=== PATIENT | male | born 1945 | race Caucasian/White ===

== ENCOUNTER → 2018-03-21 | Emergency (ER) | payer MEDICARE, BC, OTHER | END | disposition left against medical advice (07) | LOC: EDBD 15:41 → ER 15:41 | DX: R07.81 Pleurodynia (principal); Z53.21 Procedure and treatment not carried out due to patient leaving prior to being seen by health care provider ==

== ENCOUNTER → 2020-07-22 | Outpatient (CLI) | payer MEDICARE, BC, OTHER | END | disposition home or self-care (01) | LOC: XY 16:14 | DX: M54.2 Cervicalgia (principal); Z86.73 Personal history of transient ischemic attack (TIA), and cerebral infarction without residual deficits | CPT/HCPCS: 93886 ==

== ENCOUNTER → 2020-12-15 | Outpatient (CLI) | payer MEDICARE, BC, OTHER | END | disposition home or self-care (01) | LOC: XYW 09:49 | DX: M51.37 Other intervertebral disc degeneration, lumbosacral region (principal); M47.817 Spondylosis without myelopathy or radiculopathy, lumbosacral region; M48.07 Spinal stenosis, lumbosacral region; M51.26 Other intervertebral disc displacement, lumbar region; M25.78 Osteophyte, vertebrae; M79.672 Pain in left foot | CPT/HCPCS: 72148 ==

== ENCOUNTER 2022-12-05 21:43 | Emergency (ER) | payer MEDICARE, OTHER ==
[~2022-12-05] VITALS: Ht 172.7 cm; Wt 73.0 kg
[2022-12-05 23:17] LABS: Urine Bacteria FEW /hpf (None Seen); Urine Blood 1+ /uL (Negative); Urine Specific Gravity 1.006 (1.001-1.035); Urine WBC 1 /hpf (0 - 3)
[2022-12-05 23:35] LABS: Basophils # (auto) 0 10 ^3/uL (0-0.2); Basophils % (auto) 0.3 % (0.0-2.0); Eosinophils # (auto) 0 10 ^3/uL (0-0.8); Eosinophils % (auto) 0.5 % (0.0-7.0); Hemoglobin 10.7 g/dL (13.5-17.5); Lymphocytes # (auto) 0.5 10 ^3/uL (0.4-5.4); Lymphocytes % (auto) 4.6 % (10.0-50.0); Mean Corpuscular Hemoglobin 29.8 pg (28.0-32.0); Mean Corpuscular Hgb Conc. 34.6 g/dL (32.0-36.0); Mean Corpuscular Volume 86.2 fL (80.0-100.0); Monocytes # (auto) 0.6 10 ^3/uL (0-1.3); Monocytes % (auto) 5.9 % (0.0-12.0); Neutrophils # (auto) 9.7 10 ^3/uL (1.6-8.6); Neutrophils % (auto) 88.7 % (37.0-80.0); Red Cell Distribution Width 14.1 % (11.8-14.3); White Blood Cell 10.9 10^3/uL (4.4-10.8)
[2022-12-05 23:43] LABS: Albumin 2.6 g/dL (3.4-5.0); BUN/Creatinine Ratio 14.5; Potassium 3.6 mmol/L (3.5-5.1)
[2022-12-05 23:52] LABS: Bilirubin, Total 2.2 mg/dL (0.2-1.0); Total Protein 6.5 g/dL (6.4-8.2)
[2022-12-06 03:15] VITALS: BP 128/71
== END 2022-12-06 03:15 | disposition home or self-care (01) ==
LOC: ER 21:48
DX: N17.9 Acute kidney failure, unspecified (principal); N40.1 Benign prostatic hyperplasia with lower urinary tract symptoms; R33.8 Other retention of urine; Z88.5 Allergy status to narcotic agent; Z88.8 Allergy status to other drugs, medicaments and biological substances
CPT/HCPCS: 36415; 51702; 74176; 80053; 81001; 83690; 85025

== ENCOUNTER 2025-02-22 20:40 | Inpatient (IN) | payer OTHER, MEDICARE, BC ==
[~2025-02-22] VITALS: Ht 172.7 cm; Wt 69.0 kg
--- NOTE | 2025-02-22 21:12 | ED.PDOC ---
Musculoskeletal HPI Comments 79 y/o M, presents to the ED for CC of lower extremity. Patient states, that he has been experiencing right foot swelling with associated redness onset, today (02/22/25). Patient reports, that he had company over yesterday (02/21/25) and was told to have an infection which prompted him to follow up with ED d/t symptoms worsening this morning (02/22/25). Patient states he was able to express fluid out of the wounds site. Patient denies fall, trauma, laceration. No other symptoms or modifying factors present at this time. Patient was hypertensive on arrival. Chief Complaint: Lower Extremity Time Seen by MD: 21:05 Reviewed Notes: Nurses Notes, Medications, Allergies Allergies: Coded Allergies: Atorvastatin (Verified Allergy, Unknown, 12/05/22) Oxycodone (Verified Allergy, Unknown, 12/05/22) Information Source: Patient Mode of Arrival: Ambulatory Location: Right Extremity Location: Foot Timing: Days Prehospital treatment: None Severity: Moderate Bear Weight: Limited Pain: Moderate Mechanism: Spontaneous Circumstances: Spontaneous Onset of Symptoms: Spontaneous Symptoms: Swelling, Pain, Erythema DVT Risk Factors: NONE Last Tetanus: Unknown Associated signs and symptoms: Foot pain Past Medical History PAST MEDICAL HISTORY: HTN Surgical History: Denies all surgeries Family History Family History: Unknown Social History Smoker: Non-Smoker Alcohol: Denies ETOH Use Drugs: Denies Drug Use Lives In: Home Constitutional: denies: chills, diaphoresis, fatigue, fever, malaise, sweats, weakness, others EENTM: denies: blurred vision, double vision, ear bleeding, ear discharge, ear drainage, ear pain, ear ringing, eye pain, eye redness, hearing loss, mouth pain, mouth swelling, nasal discharge, nose bleeding, nose congestion, nose pain, photophobia, tearing, throat pain, throat swelling, voice changes, others Respiratory: denies: cough, hemoptysis, orthopnea, SOB at rest, shortness of breath, SOB with excertion, stridor, wheezing, others Cardiovascular: denies: chest pain, dizzy spells, diaphoresis, Dyspnea on exertion, edema, irregular heart beat, left arm pain, lightheadedness, palpitations, PND, syncope, others Gastrointestinal: denies: abdomen distended, abdominal pain, blood streaked bowels, constipated, diarrhea, dysphagia, difficulty swallowing, hematemesis, melena, nausea, poor appetite, poor fluid intake, rectal bleeding, rectal pain, vomiting, others Genitourinary: denies: burning, dysuria, flank pain, frequency, hematuria, incontinence, penile discharge, penile sore, pain, testicle pain, testicle swelling, urgency, others Neurological: denies: dizziness, fainting, headache, left sided numbness, left sided weakness, numbness, paresthesia, pre-existing deficit, right sided numbness, right sided weakness, seizure, speech problems, tingling, tremors, weakness, others Musculoskeletal: reports: others (right foot pain); denies: back pain, gout, joint pain, joint swelling, muscle pain, muscle stiffness, neck pain Integumetry: denies: bruises, change in color, change in hair/nails, dryness, laceration, lesions, lumps, rash, wounds, others Allergic/Immunocompromised: denies: Difficulty Healing, Frequent Infections, Hives, Itching, others Hematologic/Lymphatic: denies: anemia, blood clots, easy bleeding, easy bruising, swollen glands, others Endocrine: denies: excessive hunger, excessive sweating, excessive thirst, excessive urination, flushing, intolerance to cold, intolerance to heat, unexplained weight gain, unexplained weight loss, others Psychiatric: denies: anxiety, bipolar disorder, depression, hopeless, panic disorder, schizophrenia, sleepless, suicidal, others All Other Systems: Reviewed and Negative Physical Exam General Appearance: Moderate Distress ([id number] distress due to concerns related to his right foot issues. Patient appears to be in poor overall health.), Normal HEENT: Normal ENT Inspection, Pharynx Normal, TMs Normal Neck: Full Range of Motion, Non-Tender, Normal, Normal Inspection Respiratory: Chest Non-Tender, Lungs Clear, No Accessory Muscle Use, No Respiratory Distress, Normal Breath Sounds Cardiovascular: No Edema, No JVD, No Murmur, No Gallop, Normal Peripheral Pulses, Regular Rate/Rhythm Breast Exam: Deferred Gastrointestinal: No Organomegaly, Non Tender, No Pulsatile Mass, Normal Bowel Sounds, Soft Genitalia: Deferred Pelvic: Deferred Rectal: Deferred Extremities: Other (Patient has a weeping forefoot pedal wound on the right foot. Foot is erythematous extending up into the ankle and distal lower leg. No lymphangitis noted. Localized edema.) Neurologic: Alert, No Motor Deficits, Normal Affect, Normal Mood, No Sensory Deficits Cerebellar Function: NOT DONE Reflexes: NOT DONE Skin: Dry, Normal Color, Warm Lymphatic: No Adenopathy Was a procedure done? Was a procedure done?: No Differential Diagnosis EXT Differential Diagnosis: Cellulitis, Bursitis, Other (Sepsis, electrolyte abnormality, osteomyelitis) X-Ray, Labs, Meds, VS Vital Signs Date Time Temp Pulse Resp B/P (MAP) Pulse Ox O2 Delivery O2 Flow Rate FiO2 02/22/25 21:00 98.2 79 16 171/71 (104) 97 98.2 Lab Test 02/22/25 21:17 Range/Units White Blood Count 4.4 4.4-10.8 10^3/uL Red Blood Count 4.31 L 4.5-5.90 10^6/uL Hemoglobin 12.3 L 13.5-17.5 g/dL Hematocrit 36.2 L 41.0-53.0 % Mean Corpuscular Volume 83.9 80.0-100.0 fL Mean Corpuscular Hemoglobin 28.6 28.0-32.0 pg Mean Corpuscular Hemoglobin Concent 34.1 32.0-36.0 g/dL Red Cell Distribution Width 14.4 H 11.8-14.3 % Platelet Count 193 140-450 10^3/uL Mean Platelet Volume 7.8 6.9-10.8 fL Neutrophils (%) (Auto) 65.3 37.0-80.0 % Lymphocytes (%) (Auto) 21.9 10.0-50.0 % Monocytes (%) (Auto) 8.8 0.0-12.0 % Eosinophils (%) (Auto) 2.7 0.0-7.0 % Basophils (%) (Auto) 1.3 0.0-2.0 % Neutrophils # (Auto) 2.9 1.6-8.6 10 ^3/uL Lymphocytes # (Auto) 1.0 0.4-5.4 10 ^3/uL Monocytes # (Auto) 0.4 0-1.3 10 ^3/uL Eosinophils # (Auto) 0.1 0-0.8 10 ^3/uL Basophils # (Auto) 0.1 0-0.2 10 ^3/uL Nucleated Red Blood Cells 0.0 % Sodium Level 143 136-145 mmol/L Potassium Level 3.7 3.5-5.1 mmol/L Chloride Level 105 98-107 mmol/L Carbon Dioxide Level 30 20-31 mmol/L Anion Gap 8 5-15 Blood Urea Nitrogen 20 9-23 mg/dL Creatinine 1.32 H 0.700-1.30 mg/dL Glomerular Filtration Rate Calc 54 >90 mL/min BUN/Creatinine Ratio 15.2 10.0-20.0 Serum Glucose 76 74-106 mg/dL Lactic Acid Level 1.1 0.4-2.0 mmol/L Calcium Level 10.2 8.7-10.4 mg/dL Total Bilirubin 0.6 0.2-1.0 mg/dL Aspartate Amino Transferase (AST) 24 13-40 U/L Alanine Aminotransferase (ALT) 18 7-40 U/L Alkaline Phosphatase 67 46-116 U/L Troponin I High Sensitivity 12 </=54 ng/L B-Type Natriuretic Peptide 91.41 0-100 pg/mL Total Protein 6.6 5.7-8.2 g/dL Albumin 4.4 3.2-4.8 g/dL X-Ray, Labs, Meds, VS Comment All studies performed the ED were evaluated by me personally. Serum studies were unremarkable for any septic concerns. CT of the foot revealed possible osteomyelitis as well as edema of the subcutaneous tissue which is worse over the dorsum of the foot. Patient will be admitted for IV antibiotics to address his probable osteomyelitis concern. Patient should receive a podiatry consultation. Time of 1ST Reevaluation: 23:51 Reevaluation 1ST: Improved Consultation: PCP Patient Education/Counseling: Diagnosis, Treatment Family Education/Counseling: Diagnosis, Treatment, No Family Present Sepsis Sepsis Reasesment Focused Exam Orders: Laboratory Tests 02/22/25 21:17: Lactic Acid Level 1.1 Departure 1 Departure Time of Disposition: 23:51 Impression: Primary Impression: Osteomyelitis of right foot Additional Impression: Hypertension Disposition: 09 ADMITTED INPATIENT Condition: Stable Discharged With: Self Critical Care Note Critical Care Time?: No Stability Stability form required: No Heart Score Heart Score: Heart Score Response (Comments) Value History N/A 0 EKG N/A 0 Age N/A 0 Risk Factors N/A 0 Troponin N/A 0 Total 0 I personally scribed for STONEY ZARAGOZA PAC ([email or web address]) on 02/22/25 at 21:11. Elect ronically submitted by Camila Lucas ([email or web address]). STONEY ZARAGOZA PAC February 22, 2025 21:11
[2025-02-22 21:31] LABS: Basophils # (auto) 0.1 10 ^3/uL (0-0.2); Basophils % (auto) 1.3 % (0.0-2.0); Eosinophils # (auto) 0.1 10 ^3/uL (0-0.8); Eosinophils % (auto) 2.7 % (0.0-7.0); Hematocrit 36.2 % (41.0-53.0); Hemoglobin 12.3 g/dL (13.5-17.5); Lymphocytes % (auto) 21.9 % (10.0-50.0); Mean Corpuscular Hemoglobin 28.6 pg (28.0-32.0); Mean Corpuscular Hgb Conc. 34.1 g/dL (32.0-36.0); Mean Corpuscular Volume 83.9 fL (80.0-100.0); Monocytes # (auto) 0.4 10 ^3/uL (0-1.3); Monocytes % (auto) 8.8 % (0.0-12.0); Neutrophils # (auto) 2.9 10 ^3/uL (1.6-8.6); Neutrophils % (auto) 65.3 % (37.0-80.0); Platelet Count (auto) 193 10^3/uL (140-450); Red Blood Cells 4.31 10^6/uL (4.5-5.90); Red Cell Distribution Width 14.4 % (11.8-14.3); White Blood Cell 4.4 10^3/uL (4.4-10.8)
[2025-02-22 21:53] LABS: Alanine Aminotransferase 18 U/L (7-40); Albumin 4.4 g/dL (3.2-4.8); Alkaline Phosphatase 67 U/L (46-116); Anion Gap 8 (5-15); Aspartate Aminotransferase 24 U/L (13-40); BUN/Creatinine Ratio 15.2 (10.0-20.0); Bilirubin, Total 0.6 mg/dL (0.2-1.0); Blood Urea Nitrogen 20 mg/dL (9-23); Calcium 10.2 mg/dL (8.7-10.4); Carbon Dioxide 30 mmol/L (20-31); Chloride 105 mmol/L (98-107); Glucose 76 mg/dL (74-106); Potassium 3.7 mmol/L (3.5-5.1); Sodium 143 mmol/L (136-145); Total Protein 6.6 g/dL (5.7-8.2)
--- NOTE | 2025-02-22 22:22 | DVH ---
INDICATION: Rule out osteomyelitis of forefoot COMPARISON: None TECHNIQUE: CT of the right was performed without contrast. Volume transverse images were obtained and reconstructed in multiple planes using bone and soft tissue algorithms. CONTRAST: None Radiation Dose Information: CT Dose: CTDI volume is 7.75 mGy. Dose-length product is 204.15 mGy*cm FINDINGS: The alignment is normal. The joint spaces are normal. There is no fracture, dislocation, or focal osseous lesions. Subcutaneous edema is noted over the right foot and ankle worse over the dorsum of the foot. IMPRESSION: 1. Edema in the subcutaneous tissues worse over the dorsum of the foot. 2. No bony erosions however possibility of osteomyelitis can not be excluded recommend MRI for furthe r evaluation. 3. All CT scans at this medical facility are performed using dose modulation techniques as appropriat e to a performed exam including the following: Automated exposure control was utilized; adjustment of the MA and/or KV according to patient size; and use of iterative reconstruction technique. HS:Y
[2025-02-22] MEDS: PIPERACILLIN-TAZOB 3.375GM 100 ML IV ONE (23:45)
[2025-02-22] MEDS ORDERED: VANCOMYCIN PER PHARMACY 0 MG IV SCH (23:45)
[2025-02-23] VITALS (7 sets, daily range): BP systolic 130–146; BP diastolic 60–82; PULSE 47–63; RESP 12–18; TEMP 97.3–97.5; O2SAT 95–100
[2025-02-23] MEDS ORDERED: MORPHINE SULFATE INJ 2 MG/ml SYRG IV PRN (01:45)
[2025-02-23] MEDS ORDERED: NITROGLYCERIN 0.4 MG SL TAB SL PRN (01:45)
[2025-02-23] MEDS ORDERED: DOCUSATE SOD 100 MG CAP PO PRN (01:45)
[2025-02-23] MEDS ORDERED: ONDANSETRON HCL 4 MG/2 ML VIAL IV PRN (01:45)
--- NOTE | 2025-02-23 01:57 | DVHHP2 ---
History of Present Illness Reason for Visit: Osteomyelitis of right foot History of Present Illness The patient is a 79-year-old male with past medical history of hypertension who presented to [facility] ED with complaint of right lower extremity redness and swelling. Patient reports he has been experiencing increased redness of the right foot, painful sensation, bleeding, getting worse that prompted this visit. Patient was seen and evaluated in the ED, laboratory data shows WBC 4.4, platelets 193, sodium 143, potassium 3.7, BUN 20, creatinine 1.32, glucose 76, BNP 91.41, troponin 12, blood pressure 171/71, pulse 79, temperature 98.2 F, O2 saturation 97% on room air. Right foot CT revealing edema in the subcutaneous tissues worse over the dorsum of the foot, no bony erosions, however possibility of osteomyelitis can not be excluded. Patient was started on IV antibiotic regimen vancomycin, given hydralazine 10 mg IV x1, please see medication orders section in the computer. On my assessment, patient denied chest pain, no headache, no dizziness, no diaphoresis, no shortness of breath, no nausea, no vomiting, no fever, no chills. Patient was admitted for further evaluation and medical management. Past Medical History HTN Past Surgical History Denies all surgeries Family History Reviewed, noncontributory to the management of this case. Past Social History The patient lives at home, denies smoking, alcohol or illicit drugs abuse. Review of Systems Constitutional: No: Fever, Chills, Sweats, Weakness, Malaise, Other Eyes: No: Pain, Vision change, Conjunctivae inflammation, Eyelid inflammation, Other, Redness ENT: No: Ear pain, Ear discharge, Nose pain, Nose discharge, Nose congestion, Mouth pain, Mouth swelling, Throat pain, Throat swelling, Other Respiratory: No: Cough, Dry, Shortness of breath, SOB with excertion, Wheezing, Hemoptysis, Pleuritic Pain, Sputum, Wheezing, Other Cardiovascular: No: Chest Pain, Palpitations, Orthopnea, Paroxysmal Noc. Dyspnea, Edema, Lt Headedness, Other Gastrointestinal: No: Nausea, Vomiting, Abdominal Pain, Diarrhea, Constipation, Melena, Hematochezia, Other Genitourinary: No Dysuria, No Frequency, No Incontinence, No Hematuria, No Retention, No Other Musculoskeletal: foot pain (Right); No: other, neck pain, shoulder pain, arm pain, back pain, hand pain, leg pain Skin: No: Rash, Lesions, Jaundice, Bruising, Other Neurological: No: Weakness, Numbness, Incoordination, Change in speech, Confusion, Seizures, Other Allergies: Coded Allergies: Atorvastatin (Verified Allergy, Unknown, 12/05/22) Oxycodone (Verified Allergy, Unknown, 12/05/22) Medications Current Medications Medications Dose Ordered Sig/Syed Route Start Time Stop Time Status Last Admin Dose Admin Vancomycin HCl 0 ml @ 0 mls/hr UD IV 02/22/25 23:45 UNV Exam Vital Signs Vital Signs Date Time Temp Pulse Resp B/P (MAP) Pulse Ox O2 Delivery O2 Flow Rate FiO2 02/22/25 21:00 98.2 79 16 171/71 (104) 97 98.2 General Appearance: Alert, Oriented X3, Cooperative, No acute distress HEENT: Atraumatic, PERRLA, EOMI, Mucous membr. moist/pink Respiratory: Clear to auscultation, Normal air movement Cardiovascular: Regular rate, Normal S1, Normal S2, No murmurs Abdominal: Normal bowel sounds, Soft, No tenderness, No hepatospenomegaly, No masses Extremities: No clubbing, No cyanosis, No edema, Normal pulses, Other (Right foot swelling/redness) Skin: No rashes, No significant lesion Neuro: Normal speech, Normal tone, Sensation intact, Cranial nerves 3-12 NL, R eflexes 2+, Other (Generalized weakness) Psych/Mental Status: Mental status NL, Mood NL Labs/Xrays Labs Test 02/22/25 21:17 Range/Units White Blood Count 4.4 4.4-10.8 10^3/uL Red Blood Count 4.31 L 4.5-5.90 10^6/uL Hemoglobin 12.3 L 13.5-17.5 g/dL Hematocrit 36.2 L 41.0-53.0 % Mean Corpuscular Volume 83.9 80.0-100.0 fL Mean Corpuscular Hemoglobin 28.6 28.0-32.0 pg Mean Corpuscular Hemoglobin Concent 34.1 32.0-36.0 g/dL Red Cell Distribution Width 14.4 H 11.8-14.3 % Platelet Count 193 140-450 10^3/uL Mean Platelet Volume 7.8 6.9-10.8 fL Neutrophils (%) (Auto) 65.3 37.0-80.0 % Lymphocytes (%) (Auto) 21.9 10.0-50.0 % Monocytes (%) (Auto) 8.8 0.0-12.0 % Eosinophils (%) (Auto) 2.7 0.0-7.0 % Basophils (%) (Auto) 1.3 0.0-2.0 % Neutrophils # (Auto) 2.9 1.6-8.6 10 ^3/uL Lymphocytes # (Auto) 1.0 0.4-5.4 10 ^3/uL Monocytes # (Auto) 0.4 0-1.3 10 ^3/uL Eosinophils # (Auto) 0.1 0-0.8 10 ^3/uL Basophils # (Auto) 0.1 0-0.2 10 ^3/uL Nucleated Red Blood Cells 0.0 % Sodium Level 143 136-145 mmol/L Potassium Level 3.7 3.5-5.1 mmol/L Chloride Level 105 98-107 mmol/L Carbon Dioxide Level 30 20-31 mmol/L Anion Gap 8 5-15 Blood Urea Nitrogen 20 9-23 mg/dL Creatinine 1.32 H 0.700-1.30 mg/dL Glomerular Filtration Rate Calc 54 >90 mL/min BUN/Creatinine Ratio 15.2 10.0-20.0 Serum Glucose 76 74-106 mg/dL Lactic Acid Level 1.1 0.4-2.0 mmol/L Calcium Level 10.2 8.7-10.4 mg/dL Total Bilirubin 0.6 0.2-1.0 mg/dL Aspartate Amino Transferase (AST) 24 13-40 U/L Alanine Aminotransferase (ALT) 18 7-40 U/L Alkaline Phosphatase 67 46-116 U/L Troponin I High Sensitivity 12 </=54 ng/L B-Type Natriuretic Peptide 91.41 0-100 pg/mL Total Protein 6.6 5.7-8.2 g/dL Albumin 4.4 3.2-4.8 g/dL PATIENT: OLIVIA HOWARD ACCT: [id number] UNIT: [id number] : 1945 LOC: ER ROOM / BED: / AGE / SEX: 79 / M ADM STATUS: REG ER SERVICE 02 ORDERING PHYSICIAN: STONEY ZARAGOZA PAC PROCEDURE(s): RFTCT - CT R FOOT WO CONTRAST REASON: Rule out osteomyelitis of forefoot ORDER NUMBER(s): [id number], ACCESSION NUMBER(s): [id number] INDICATION: Rule out osteomyelitis of forefoot COMPARISON: None TECHNIQUE: CT of the right was performed without contrast. Volume transverse images were obtained and reconstructed in multiple planes using bone and soft tissue algorithms. CONTRAST: None Radiation Dose Information: CT Dose: CTDI volume is 7.75 mGy. Dose-length product is 204.15 mGy*cm FINDINGS: The alignment is normal. The joint spaces are normal. There is no fracture, dislocation, or focal osseous lesions. Subcutaneous edema is noted over the right foot and ankle worse over the dorsum of the foot. IMPRESSION: 1. Edema in the subcutaneous tissues worse over the dorsum of the foot. 2. No bony erosions however possibility of osteomyelitis can not be excluded recommend MRI for further evaluation. Assessment/Plan Assessment/Plan Osteomyelitis of right foot Hypertensive urgency Acute renal injury Generalized weakness Plan 1. Admit to med surge unit 2. Breathing treatment 3. Pain control management 4. Management of fluids and electrolytes 5. Consultation for hospitalist 6. Diagnostic tests right foot CT 7. DVT prophylaxis on SCDs 8. Repeat labs CBC, CMP in a.m. 9. Continue with current medical management 10. Treatment plan discussed with patient and RN. Patient verbalized unde rstanding. Plan discussed with: Patient, Other (RN) Problem List: (1) Osteomyelitis of right foot (2) Hypertensive urgency (3) Acute kidney injury (4) Generalized weakness Date of Service: February 23, 2025 Billing Provider: JOYCE GARCIA DNP Common Visit Codes: 53840-[id number] INP/OBS CARE (HIGH) OJYCE GARCIA DNP February 23, 2025 01:57
[2025-02-23] MEDS: cloNIDine HCL 0.1 MG TAB PO ONE (03:28)
[2025-02-23] MEDS: PIPERACILLIN-TAZOB 3.375GM 100 ML IV ONE (05:16)
[2025-02-23] MEDS: VANCOMYCIN 1.5GM/300ML 300 ML IV ONE ×2 (06:27)
[2025-02-23] MEDS: SODIUM CHLOR 0.9% PF (SALINE LOCK) 10ML VIAL/SYR IV SCH (06:27)
[2025-02-23 09:07] LABS: Basophils # (auto) 0.1 10 ^3/uL (0-0.2); Basophils % (auto) 1.8 % (0.0-2.0); Eosinophils # (auto) 0.1 10 ^3/uL (0-0.8); Eosinophils % (auto) 2.6 % (0.0-7.0); Hematocrit 38.1 % (41.0-53.0); Hemoglobin 12.7 g/dL (13.5-17.5); Lymphocytes # (auto) 0.9 10 ^3/uL (0.4-5.4); Lymphocytes % (auto) 23.5 % (10.0-50.0); Mean Corpuscular Hemoglobin 28.6 pg (28.0-32.0); Mean Corpuscular Hgb Conc. 33.4 g/dL (32.0-36.0); Mean Corpuscular Volume 85.7 fL (80.0-100.0); Monocytes # (auto) 0.3 10 ^3/uL (0-1.3); Monocytes % (auto) 8.3 % (0.0-12.0); Neutrophils # (auto) 2.5 10 ^3/uL (1.6-8.6); Neutrophils % (auto) 63.8 % (37.0-80.0); Nucleated Red Blood Cells % 0.1 %; Platelet Count (auto) 173 10^3/uL (140-450); Red Blood Cells 4.45 10^6/uL (4.5-5.90); Red Cell Distribution Width 14.8 % (11.8-14.3)
[2025-02-23 09:38] LABS: Alanine Aminotransferase 19 U/L (7-40); Alkaline Phosphatase 71 U/L (46-116); Anion Gap 9 (5-15); Aspartate Aminotransferase 24 U/L (13-40); BUN/Creatinine Ratio 14.5 (10.0-20.0); Blood Urea Nitrogen 19 mg/dL (9-23); Calcium 10.2 mg/dL (8.7-10.4); Carbon Dioxide 30 mmol/L (20-31); Chloride 102 mmol/L (98-107); Potassium 3.6 mmol/L (3.5-5.1); Sodium 141 mmol/L (136-145); Total Protein 6.7 g/dL (5.7-8.2)
[2025-02-23 09:39] LABS: Albumin 4.5 g/dL (3.2-4.8); Bilirubin, Total 0.8 mg/dL (0.2-1.0); Glucose 161 mg/dL (74-106)
[2025-02-23] MEDS: FAMOTIDINE (10MG/ML) 2ML VL IV SCH (10:46)
[2025-02-23] MEDS: ZINC SULFATE 220mg CAP or TAB PO SCH (10:46)
[2025-02-23] MEDS: ASCORBIC ACID 500 MG TAB PO SCH (10:46)
[2025-02-23] MEDS: amLODIPine BESYLATE 5 MG TAB PO SCH (10:46)
--- NOTE | 2025-02-23 10:47 | DVH ---
CLINICAL INDICATION: Rule out osteomyelitis COMPARISON: CT CT R FOOT WO CONTRAST on DOS: 02/22/25 TECHNIQUE: Multiplanar, multisequence MRI of the right foot was performed without intravenous contras t. Contrast: None. INTERPRETATION: Bones and joints: No evidence of acute fracture. There is no marrow replacing lesion. Amputation of the great toe phalanges. Joint spaces are maintained. Soft tissues: Diffuse dorsal soft tissue swelling. No fluid collection. No high-grade tendon or ligam ent injury. IMPRESSION: 1. No MR evidence to suggest osteomyelitis. Amputation of the great toe phalanges. 2. Soft tissue swelling in the dorsal forefoot which may reflect cellulitis.
--- NOTE | 2025-02-23 13:24 | DVHPN2 ---
Subjective 79-year-old male with a history of diabetes, hypertension, comes with chief complaint of right foot and ankle swelling and redness Changes from previous H/P or p: Changes Eyes: No Pain, No Vision change, No Conjunctivae inflammation, No Eyelid inflammation, No Other, No Redness ENT: No Ear pain, No Ear discharge, No Nose pain, No Nose discharge, No Nose congestion, No Mouth pain, No Mouth swelling, No Throat pain, No Throat swelling, No Other Cardiovascular: No Chest Pain, No Palpitations, No Orthopnea, No Paroxysmal Noc. Dyspnea, No Edema, No Lt Headedness, No Other Respiratory: No Cough, No Dry, No Shortness of breath, No SOB with excertion, No Wheezing, No Hemoptysis, No Pleuritic Pain, No Sputum, No Other Gastrointestinal: No Nausea, No Vomiting, No Abdominal Pain, No Diarrhea, No Constipation, No Melena, No Hematochezia, No Other Genitourinary: No Dysuria, No Frequency, No Incontinence, No Hematuria, No Retention, No Other Musculoskeletal: No other, No neck pain, No shoulder pain, No arm pain, No back pain, No hand pain, No leg pain; foot pain (Right) Skin: No Rash, No Lesions, No Jaundice, No Bruising, No Other Objective Vitals Vital Signs Date Time Temp Pulse Resp B/P (MAP) Pulse Ox O2 Delivery O2 Flow Rate FiO2 02/23/25 10:46 128/78 02/23/25 09:00 97.3 58 18 95 97.3 02/23/25 08:00 Room Air* 0 21 General Appearance: Alert, Oriented X3, Cooperative, No acute distress Extremities: Other (Right foot and ankle edema and erythema) Medications Current Medications Medications Dose Ordered Sig/Syed Route Start Time Stop Time Status Last Admin Dose Admin Vancomycin HCl 0 ml @ 0 mls/hr UD IV 02/22/25 23:45 Hydralazine HCl 10 mg Q6HP PRN IV 02/23/25 01:45 Tamsulosin HCl 0.4 mg QPM PO 02/23/25 18:00 Famotidine 20 mg Q12HR IV 02/23/25 10:00 02/23/25 10:46 20 MG Sodium Chloride 10 ml Q8HR IV 02/23/25 06:00 02/23/25 10:47 10 ML Acetaminophen/ Hydrocodone Bitart 1 tab Q4HP PRN PO 02/23/25 01:45 Temazepam 15 mg QHSP PRN PO 02/23/25 01:45 Ondansetron HCl 4 mg Q4HP PRN IV 02/23/25 01:45 Docusate Sodium 100 mg BIDPRN PRN PO 02/23/25 01:45 Zinc Sulfate 220 mg DAILY PO 02/23/25 10:00 02/23/25 10:46 220 MG Ascorbic Acid 500 mg BID PO 02/23/25 10:00 02/23/25 10:46 500 MG Acetaminophen 650 mg Q6HP PRN PO 02/23/25 01:45 Nitroglycerin 0.4 mg Q5MINP PRN SL 02/23/25 01:45 Morphine Sulfate 2 mg Q30M PRN IV 02/23/25 01:45 Amlodipine Besylate 5 mg DAILY PO 02/23/25 10:00 02/23/25 10:46 5 MG Laboratory Results Laboratory Tests 02/23/25 09:02 Chemistry Test 02/22/25 21:17 02/23/25 09:02 Albumin 4.4 g/dL (3.2-4.8) 4.5 g/dL (3.2-4.8) Calcium Level 10.2 mg/dL (8.7-10.4) 10.2 mg/dL (8.7-10.4) Total Protein 6.6 g/dL (5.7-8.2) 6.7 g/dL (5.7-8.2) Cardiac Markers Test 02/22/25 21:17 B-Type Natriuretic Peptide 91.41 pg/mL (0-100) LFT Test 02/22/25 21:17 02/23/25 09:02 Alanine Aminotransferase (ALT) 18 U/L (7-40) 19 U/L (7-40) Alkaline Phosphatase 67 U/L (46-116) 71 U/L (46-116) Aspartate Amino Transferase (AST) 24 U/L (13-40) 24 U/L (13-40) Total Bilirubin 0.6 mg/dL (0.2-1.0) 0.8 mg/dL (0.2-1.0) Assessment/Plan Assessment/Plan Right foot and ankle cellulitis Hypertension Acute kidney injury versus chronic kidney disease Plan IV antibiotics Zosyn and vancomycin Podiatry consult Wound care Monitor the patient closely MRI shows no osteomyelitis Full code Advance directives discussed for 22 minutes Plan discussed with: Patient Date of Service: February 23, 2025 Billing Provider: LISA GROVES MD Common Visit Codes: [id number] INP/OBS CARE(HIGH) Secondary Visit Codes: [id number] CARE PLAN 30 MINUTES LISA GROVES MD February 23, 2025 13:24
[2025-02-23] MEDS: TAMSULOSIN HYDROCHLORIDE 0.4 MG CAP PO SCH (15:06)
[2025-02-23] MEDS: PIPERACILLIN-TAZOB 3.375GM 100 ML IV SCH (15:06)
[2025-02-23] MEDS: HYDROcodone-ACET 5/325MG TAB PO PRN (15:06)
[2025-02-24] VITALS (8 sets, daily range): BP systolic 94–162; BP diastolic 46–82; PULSE 46–70; RESP 15–20; TEMP 97.4–98; O2SAT 96–100
[2025-02-24] MEDS: TEMAZEPAM 15 MG CAP PO PRN (02:25)
[2025-02-24 05:56] LABS: Basophils # (auto) 0.1 10 ^3/uL (0-0.2); Basophils % (auto) 3.6 % (0.0-2.0); Eosinophils # (auto) 0.1 10 ^3/uL (0-0.8); Eosinophils % (auto) 3.8 % (0.0-7.0); Lymphocytes % (auto) 28.5 % (10.0-50.0); Mean Corpuscular Hemoglobin 28.8 pg (28.0-32.0); Mean Corpuscular Hgb Conc. 33.3 g/dL (32.0-36.0); Mean Corpuscular Volume 86.6 fL (80.0-100.0); Monocytes # (auto) 0.3 10 ^3/uL (0-1.3); Monocytes % (auto) 9.3 % (0.0-12.0); Neutrophils # (auto) 1.8 10 ^3/uL (1.6-8.6); Neutrophils % (auto) 54.8 % (37.0-80.0); Nucleated Red Blood Cells % 0.1 %; Platelet Count (auto) 155 10^3/uL (140-450); Red Blood Cells 3.82 10^6/uL (4.5-5.90); Red Cell Distribution Width 14.9 % (11.8-14.3); White Blood Cell 3.4 10^3/uL (4.4-10.8)
[2025-02-24 06:45] LABS: Alanine Aminotransferase 15 U/L (7-40); Albumin 3.5 g/dL (3.2-4.8); Anion Gap 10 (5-15); Aspartate Aminotransferase 24 U/L (13-40); BUN/Creatinine Ratio 10.8 (10.0-20.0); Bilirubin, Total 0.6 mg/dL (0.2-1.0); Blood Urea Nitrogen 16 mg/dL (9-23); Calcium 8.9 mg/dL (8.7-10.4); Carbon Dioxide 24 mmol/L (20-31); Chloride 106 mmol/L (98-107); Potassium 3.6 mmol/L (3.5-5.1); Sodium 140 mmol/L (136-145)
[2025-02-24 06:56] LABS: Alkaline Phosphatase 43 U/L (46-116); Glucose 127 mg/dL (74-106); Total Protein 5.4 g/dL (5.7-8.2)
[2025-02-24 10:07] LABS: Hepatitis B Surface Antigen Negative (Negative)
[2025-02-24 10:29] LABS: Hepatitis C Antibody Negative (Negative)
--- NOTE | 2025-02-24 11:37 | DVHPN2 ---
Reviewed: Care Plan, H&P, Labs, Medications, Previous Orders, Radiology Changes from previous H/P or p: No Changes Eyes: No Pain, No Vision change, No Conjunctivae inflammation, No Eyelid inflammation, No Other, No Redness ENT: No Ear pain, No Ear discharge, No Nose pain, No Nose discharge, No Nose congestion, No Mouth pain, No Mouth swelling, No Throat pain, No Throat swelling, No Other Cardiovascular: No Chest Pain, No Palpitations, No Orthopnea, No Paroxysmal Noc. Dyspnea, No Edema, No Lt Headedness, No Other Respiratory: No Cough, No Dry, No Shortness of breath, No SOB with excertion, No Wheezing, No Hemoptysis, No Pleuritic Pain, No Sputum, No Other Gastrointestinal: No Nausea, No Vomiting, No Abdominal Pain, No Diarrhea, No Constipation, No Melena, No Hematochezia, No Other Genitourinary: No Dysuria, No Frequency, No Incontinence, No Hematuria, No Retention, No Other Musculoskeletal: No other, No neck pain, No shoulder pain, No arm pain, No back pain, No hand pain, No leg pain; foot pain (Right) Skin: No Rash, No Lesions, No Jaundice, No Bruising, No Other Objective Vitals Vital Signs Date Time Temp Pulse Resp B/P (MAP) Pulse Ox O2 Delivery O2 Flow Rate FiO2 02/24/25 10:28 156/82 02/24/25 09:00 97.8 65 18 96 97.8 02/24/25 08:00 Room Air* 0 21 Intake/Output Intake and Output 02/24/25 07:00 Intake Total 1408 ml Balance 1408 ml Intake Oral 1108 ml IV Total 300 ml # Voids 7 General Appearance: Alert, Oriented X3, Cooperative, No acute distress Extremities: Other (Right foot and ankle edema and erythema) Medications Current Medications Medications Dose Ordered Sig/Syed Route Start Time Stop Time Status Last Admin Dose Admin Vancomycin HCl 0 ml @ 0 mls/hr UD IV 02/22/25 23:45 Hydralazine HCl 10 mg Q6HP PRN IV 02/23/25 01:45 Tamsulosin HCl 0.4 mg QPM PO 02/23/25 18:00 02/23/25 15:06 0.4 MG Famotidine 20 mg Q12HR IV 02/23/25 10:00 02/24/25 10:27 20 MG Sodium Chloride 10 ml Q8HR IV 02/23/25 06:00 02/24/25 06:26 10 ML Acetaminophen/ Hydrocodone Bitart 1 tab Q4HP PRN PO 02/23/25 01:45 02/23/25 21:11 1 TAB Temazepam 15 mg QHSP PRN PO 02/23/25 01:45 02/24/25 02:25 15 MG Ondansetron HCl 4 mg Q4HP PRN IV 02/23/25 01:45 Docusate Sodium 100 mg BIDPRN PRN PO 02/23/25 01:45 Zinc Sulfate 220 mg DAILY PO 02/23/25 10:00 02/24/25 10:28 220 MG Ascorbic Acid 500 mg BID PO 02/23/25 10:00 02/24/25 10:28 500 MG Acetaminophen 650 mg Q6HP PRN PO 02/23/25 01:45 Nitroglycerin 0.4 mg Q5MINP PRN SL 02/23/25 01:45 Morphine Sulfate 2 mg Q30M PRN IV 02/23/25 01:45 Amlodipine Besylate 5 mg DAILY PO 02/23/25 10:00 02/24/25 10:28 5 MG Piperacillin Sod/ Tazobactam Sod 100 ml @ 25 mls/hr Q8HR IV 02/23/25 14:00 02/24/25 06:26 25 MLS/HR Laboratory Results Laboratory Tests 02/24/25 05:31 Chemistry Test 02/24/25 05:31 Albumin 3.5 g/dL (3.2-4.8) Calcium Level 8.9 mg/dL (8.7-10.4) Total Protein 5.4 g/dL (5.7-8.2) L LFT Test 02/24/25 05:31 Alanine Aminotransferase (ALT) 15 U/L (7-40) Alkaline Phosphatase 43 U/L (46-116) L Aspartate Amino Transferase (AST) 24 U/L (13-40) Total Bilirubin 0.6 mg/dL (0.2-1.0) Microbiology Microbiology Date/Time Source Procedure Growth Status 02/22/25 21:17 Blood Blood Culture - Preliminary NO GROWTH AFTER 24 HOURS OF INCUBATION. Resulted Labs and/or images reviewed: Labs reviewed by me, Image(s) reviewed by me Assessment/Plan Assessment/Plan Right foot and ankle cellulitis , osteomyelitis ruled out by negative MRI, podiatric consult, continue Zosyn vanco Hypertension Acute kidney injury versus chronic kidney disease History of right great toe amputation Hard of hearing Blood cultures negative Alzheimer dementia Per Patient, his has severe dementia and deaf Daughter Clyde lives in [place], Time Spent 50 minutes Advanced Care planning time 20 minutes Patient is full code Plan discussed with: Patient Date of Service: February 24, 2025 Billing Provider: BERNARDO JEFF MD Common Visit Codes: [id number] INP/OBS CARE(HIGH) Secondary Visit Codes: [id number] CARE PLAN 30 MINUTES BERNARDO JEFF MD February 24, 2025 11:37
[2025-02-24] MEDS: VANCOMYCIN 1.5GM/300ML 300 ML IV ONE (17:18)
[2025-02-24] MEDS: PREGABALIN 25 MG CAP PO ONE (23:39)
[2025-02-25] VITALS (8 sets, daily range): BP systolic 125–151; BP diastolic 58–83; PULSE 44–68; RESP 12–17; TEMP 97.4–98; O2SAT 96–100
--- NOTE | 2025-02-25 12:26 | DVHPN2 ---
Reviewed: Care Plan, H&P, Labs, Medications, Previous Orders, Radiology Changes from previous H/P or p: No Changes Eyes: No Pain, No Vision change, No Conjunctivae inflammation, No Eyelid inflammation, No Other, No Redness ENT: No Ear pain, No Ear discharge, No Nose pain, No Nose discharge, No Nose congestion, No Mouth pain, No Mouth swelling, No Throat pain, No Throat swelling, No Other Cardiovascular: No Chest Pain, No Palpitations, No Orthopnea, No Paroxysmal Noc. Dyspnea, No Edema, No Lt Headedness, No Other Respiratory: No Cough, No Dry, No Shortness of breath, No SOB with excertion, No Wheezing, No Hemoptysis, No Pleuritic Pain, No Sputum, No Other Gastrointestinal: No Nausea, No Vomiting, No Abdominal Pain, No Diarrhea, No Constipation, No Melena, No Hematochezia, No Other Genitourinary: No Dysuria, No Frequency, No Incontinence, No Hematuria, No Retention, No Other Musculoskeletal: No other, No neck pain, No shoulder pain, No arm pain, No back pain, No hand pain, No leg pain; foot pain (Right) Skin: No Rash, No Lesions, No Jaundice, No Bruising, No Other Objective Vitals Vital Signs Date Time Temp Pulse Resp B/P (MAP) Pulse Ox O2 Delivery O2 Flow Rate FiO2 02/25/25 10:23 141/71 02/25/25 05:00 97.6 44 12 100 97.6 02/24/25 20:00 Room Air* 0 21 Intake/Output Intake and Output 02/25/25 07:00 Intake Total 1850 ml Balance 1850 ml Intake Oral 1650 ml IV Total 200 ml # Voids 6 General Appearance: Alert, Oriented X3, Cooperative, No acute distress Extremities: Other (Right foot and ankle edema and erythema) Medications Current Medications Medications Dose Ordered Sig/Syed Route Start Time Stop Time Status Last Admin Dose Admin Vancomycin HCl 0 ml @ 0 mls/hr UD IV 02/22/25 23:45 Hydralazine HCl 10 mg Q6HP PRN IV 02/23/25 01:45 Tamsulosin HCl 0.4 mg QPM PO 02/23/25 18:00 02/24/25 17:18 0.4 MG Famotidine 20 mg Q12HR IV 02/23/25 10:00 02/25/25 10:00 20 MG Sodium Chloride 10 ml Q8HR IV 02/23/25 06:00 02/25/25 06:15 10 ML Acetaminophen/ Hydrocodone Bitart 1 tab Q4HP PRN PO 02/23/25 01:45 02/23/25 21:11 1 TAB Temazepam 15 mg QHSP PRN PO 02/23/25 01:45 02/24/25 02:25 15 MG Ondansetron HCl 4 mg Q4HP PRN IV 02/23/25 01:45 Docusate Sodium 100 mg BIDPRN PRN PO 02/23/25 01:45 Zinc Sulfate 220 mg DAILY PO 02/23/25 10:00 02/25/25 10:23 220 MG Ascorbic Acid 500 mg BID PO 02/23/25 10:00 02/25/25 10:23 500 MG Acetaminophen 650 mg Q6HP PRN PO 02/23/25 01:45 Nitroglycerin 0.4 mg Q5MINP PRN SL 02/23/25 01:45 Morphine Sulfate 2 mg Q30M PRN IV 02/23/25 01:45 Amlodipine Besylate 5 mg DAILY PO 02/23/25 10:00 02/25/25 10:23 5 MG Piperacillin Sod/ Tazobactam Sod 100 ml @ 25 mls/hr Q8HR IV 02/23/25 14:00 02/25/25 06:15 25 MLS/HR Laboratory Results Laboratory Tests 02/24/25 05:31 02/25/25 06:10 Microbiology Microbiology Date/Time Source Procedure Growth Status 02/22/25 21:17 Blood Blood Culture - Preliminary NO GROWTH AFTER 48 HOURS OF INCUBATION. Resulted Labs and/or images reviewed: Labs reviewed by me, Image(s) reviewed by me Assessment/Plan Assessment/Plan Right foot and ankle cellulitis , osteomyelitis ruled out by negative MRI, podiatric consult pending, continue Zosyn vanco Hypertension Acute kidney injury versus chronic kidney disease History of right great toe amputation Hard of hearing Blood cultures negative Alzheimer dementia Per Patient, his has severe dementia and deaf Daughter Clyde lives in [place], Time Spent 50 minutes Patient is full code Plan discussed with: Patient Date of Service: February 25, 2025 Billing Provider: BERNARDO JEFF MD Common Visit Codes: [id number] INP/OBS CARE(HIGH) BERNARDO JEFF MD February 25, 2025 12:26
--- NOTE | 2025-02-25 14:47 | DVHINCON2 ---
Date Seen: February 25, 2025 Reason for Consultation Right foot wounds History of Present Illness The patient is a 79-year-old male with past medical history of hypertension who presented to [facility] ED with complaint of right lower extremity redness and swelling. Patient reports he has been experiencing increased redness of the right foot, painful sensation, bleeding, getting worse that prompted this visit. Patient was seen and evaluated in the ED, laboratory data shows WBC 4.4, platelets 193, sodium 143, potassium 3.7, BUN 20, creatinine 1.32, glucose 76, BNP 91.41, troponin 12, blood pressure 171/71, pulse 79, temperature 98.2 F, O2 saturation 97% on room air. Right foot CT revealing edema in the subcutaneous tissues worse over the dorsum of the foot, no bony erosions, however possibility of osteomyelitis can not be excluded. Patient was started on IV antibiotic regimen vancomycin, given hydralazine 10 mg IV x1, please see medication orders section in the computer. On my assessment, patient denied chest pain, no headache, no dizziness, no diaphoresis, no shortness of breath, no nausea, no vomiting, no fever, no chills. Patient was admitted for further evaluation and medical management. Past Medical History See H&P Past Surgical History See H&P Family History: FH: prostate cancer G8 FATHER FH: uterine cancer G8 MOTHER Allergies: Coded Allergies: Hydrocodone (Verified Allergy, Mild, 02/24/25) Causes pt dellirium and confusion Atorvastatin (Verified Allergy, Unknown, 12/05/22) Oxycodone (Verified Allergy, Unknown, 12/05/22) Vital Signs Vital Signs Date Time Temp Pulse Resp B/P (MAP) Pulse Ox O2 Delivery O2 Flow Rate FiO2 02/25/25 13:00 97.8 53 17 151/68 (95) 99 97.8 02/24/25 20:00 Room Air* 0 21 Physical Exam Dermatological: Skin is dry with mild erythema and some maceration around the wound site No gross deformities noted Mild non-pitting edema present bilaterally A superficial eschar right distal toes 2 through 5 Vascular: Dorsalis pedis and posterior tibial pulses are 1+ bilaterally Capillary refill is under 2 seconds Skin temperature is warm bilaterally Neurologic: Protective sensation is absent on the plantar forefoot bilaterally Monofilament testing reveals decreased sensation in multiple plantar sites Musculoskeletal: Range of motion at the ankle and MTP joints is within normal limits. Strength is 5/5 in all tested muscle groups. Gait is antalgic due to offloading of the affected limb. Labs/Diagnostic Data Labs Test 02/25/25 06:10 02/24/25 05:31 02/23/25 09:02 02/22/25 21:17 Range/Units Creatinine 1.40 H 0.700-1.30 mg/dL Glomerular Filtration Rate Calc 50 >90 mL/min Random Vancomycin Level 19.8 H 5-10 ug/mL White Blood Count 3.4 L 4.4-10.8 10^3/uL Red Blood Count 3.82 L 4.5-5.90 10^6/uL Hemoglobin 11.0 L 13.5-17.5 g/dL Hematocrit 33.0 #L 41.0-53.0 % Mean Corpuscular Volume 86.6 80.0-100.0 fL Mean Corpuscular Hemoglobin 28.8 28.0-32.0 pg Mean Corpuscular Hemoglobin Concent 33.3 32.0-36.0 g/dL Red Cell Distribution Width 14.9 H 11.8-14.3 % Platelet Count 155 140-450 10^3/uL Mean Platelet Volume 8.0 6.9-10.8 fL Neutrophils (%) (Auto) 54.8 37.0-80.0 % Lymphocytes (%) (Auto) 28.5 10.0-50.0 % Monocytes (%) (Auto) 9.3 0.0-12.0 % Eosinophils (%) (Auto) 3.8 0.0-7.0 % Basophils (%) (Auto) 3.6 H 0.0-2.0 % Neutrophils # (Auto) 1.8 1.6-8.6 10 ^3/uL Lymphocytes # (Auto) 1.0 0.4-5.4 10 ^3/uL Monocytes # (Auto) 0.3 0-1.3 10 ^3/uL Eosinophils # (Auto) 0.1 0-0.8 10 ^3/uL Basophils # (Auto) 0.1 0-0.2 10 ^3/uL Nucleated Red Blood Cells 0.1 % Sodium Level 140 136-145 mmol/L Potassium Level 3.6 3.5-5.1 mmol/L Chloride Level 106 98-107 mmol/L Carbon Dioxide Level 24 20-31 mmol/L Anion Gap 10 5-15 Blood Urea Nitrogen 16 9-23 mg/dL BUN/Creatinine Ratio 10.8 10.0-20.0 Serum Glucose 127 H 74-106 mg/dL Calcium Level 8.9 8.7-10.4 mg/dL Total Bilirubin 0.6 0.2-1.0 mg/dL Aspartate Amino Transferase (AST) 24 13-40 U/L Alanine Aminotransferase (ALT) 15 7-40 U/L Alkaline Phosphatase 43 L 46-116 U/L Total Protein 5.4 L 5.7-8.2 g/dL Albumin 3.5 3.2-4.8 g/dL Hepatitis B Surface Antigen Negative Negative Hepatitis C Antibody Negative Negative Lactic Acid Level 1.1 0.4-2.0 mmol/L Troponin I High Sensitivity 12 </=54 ng/L B-Type Natriuretic Peptide 91.41 0-100 pg/mL Microbiology Date/Time Source Procedure Growth Status 02/22/25 21:17 Blood Blood Culture - Preliminary NO GROWTH AFTER 48 HOURS OF INCUBATION. Resulted Problems(with codes): (1) Enlarged prostate with urinary retention (2) Hypertension (3) Osteomyelitis of right foot (4) Generalized weakness (5) Acute kidney injury (6) Hypertensive urgency Plan/Recommendation ASSESSMENT: Patient is a 79-year-old seen on the floor for a superficial ulceration PLAN: - The patients chart was reviewed, clinical findings were discussed with the patient, the etiologies of the conditions were discussed in detail, and a treatment plan was agreed to at this time, with both oral and written instructions provided. - reviewed advanced imaging - discussed with the patient that the wounds appear to be superficial and appear to be healing appropriately - patient would benefit from out patient wound care - can dress with Iodosorb or Betadine - can follow up with me as an outpatient All questions were answered and concerns addressed to the patient's satisfaction. The patient was given the phone number to the clinic and was told how to make contact with the clinic should any concerns or questions arise. Patient understands that if any questions or concerns arise prior to the next appointment, we should be contacted immediately. FOLLOW-UP: Continue to follow while inpatient Plan discussed with: Patient Date of Service: February 25, 2025 Billing Provider: ETTA LEVINE DPM Common Visit Codes: CONSULT ONLY Consultation Codes: [id number] CONSULT <80MIN ETTA LEVINE DPRaghu February 25, 2025 14:47
[2025-02-25] MEDS: hydrALAZINE HCL 20 MG/ML VL IV PRN (15:21)
[2025-02-25] MEDS: ACETAMINOPHEN 325 MG TAB PO PRN (21:22)
[2025-02-26 05:00] VITALS: BP 110/61; PULSE 61; RESP 16; TEMP 97.6; O2SAT 96
[2025-02-26 08:10] VITALS: PULSE 71; RESP 16; O2SAT 100
[2025-02-26 08:40] VITALS: BP 138/73; PULSE 71; RESP 16; TEMP 97.8; O2SAT 100
[2025-02-26] MEDS: VANCOMYCIN 1GM/200ML PM 200 ML IV ONE (09:46)
[2025-02-26] MEDS: INFLUENZA TRIVALENT 2024-2025 0.5 ML INJ IM ONE (10:00)
--- NOTE | 2025-02-26 11:48 | DVHPN2 ---
Reviewed: Care Plan, H&P, Labs, Medications, Previous Orders, Radiology Changes from previous H/P or p: No Changes Eyes: No Pain, No Vision change, No Conjunctivae inflammation, No Eyelid inflammation, No Other, No Redness ENT: No Ear pain, No Ear discharge, No Nose pain, No Nose discharge, No Nose congestion, No Mouth pain, No Mouth swelling, No Throat pain, No Throat swelling, No Other Cardiovascular: No Chest Pain, No Palpitations, No Orthopnea, No Paroxysmal Noc. Dyspnea, No Edema, No Lt Headedness, No Other Respiratory: No Cough, No Dry, No Shortness of breath, No SOB with excertion, No Wheezing, No Hemoptysis, No Pleuritic Pain, No Sputum, No Other Gastrointestinal: No Nausea, No Vomiting, No Abdominal Pain, No Diarrhea, No Constipation, No Melena, No Hematochezia, No Other Genitourinary: No Dysuria, No Frequency, No Incontinence, No Hematuria, No Retention, No Other Musculoskeletal: No other, No neck pain, No shoulder pain, No arm pain, No back pain, No hand pain, No leg pain; foot pain (Right) Skin: No Rash, No Lesions, No Jaundice, No Bruising, No Other Objective Vitals Vital Signs Date Time Temp Pulse Resp B/P (MAP) Pulse Ox O2 Delivery O2 Flow Rate FiO2 02/26/25 09:38 138/73 02/26/25 08:40 97.8 71 16 100 97.8 02/25/25 20:00 Room Air* 0 21 Intake/Output Intake and Output 02/26/25 07:00 Intake Total 1718 ml Output Total 350 ml Balance 1368 ml Intake Oral 1518 ml IV Total 200 ml Output Urine Total 350 ml # Voids 3 General Appearance: Alert, Oriented X3, Cooperative, No acute distress Extremities: Other (Right foot and ankle edema and erythema) Medications Current Medications Medications Dose Ordered Sig/Syed Route Start Time Stop Time Status Last Admin Dose Admin Vancomycin HCl 0 ml @ 0 mls/hr UD IV 02/22/25 23:45 Hydralazine HCl 10 mg Q6HP PRN IV 02/23/25 01:45 02/25/25 15:21 10 MG Tamsulosin HCl 0.4 mg QPM PO 02/23/25 18:00 02/25/25 18:28 0.4 MG Famotidine 20 mg Q12HR IV 02/23/25 10:00 02/26/25 09:37 20 MG Sodium Chloride 10 ml Q8HR IV 02/23/25 06:00 02/26/25 05:30 10 ML Acetaminophen/ Hydrocodone Bitart 1 tab Q4HP PRN PO 02/23/25 01:45 02/23/25 21:11 1 TAB Temazepam 15 mg QHSP PRN PO 02/23/25 01:45 02/24/25 02:25 15 MG Ondansetron HCl 4 mg Q4HP PRN IV 02/23/25 01:45 Docusate Sodium 100 mg BIDPRN PRN PO 02/23/25 01:45 Zinc Sulfate 220 mg DAILY PO 02/23/25 10:00 02/26/25 09:37 220 MG Ascorbic Acid 500 mg BID PO 02/23/25 10:00 02/25/25 21:22 500 MG Acetaminophen 650 mg Q6HP PRN PO 02/23/25 01:45 02/25/25 21:22 650 MG Nitroglycerin 0.4 mg Q5MINP PRN SL 02/23/25 01:45 Morphine Sulfate 2 mg Q30M PRN IV 02/23/25 01:45 Amlodipine Besylate 5 mg DAILY PO 02/23/25 10:00 02/26/25 09:38 5 MG Piperacillin Sod/ Tazobactam Sod 100 ml @ 25 mls/hr Q8HR IV 02/23/25 14:00 02/26/25 05:30 25 MLS/HR Laboratory Results Laboratory Tests 02/24/25 05:31 02/26/25 06:05 Microbiology Microbiology Date/Time Source Procedure Growth Status 02/22/25 21:17 Blood Blood Culture - Preliminary NO GROWTH AFTER 72 HOURS OF INCUBATION. Resulted Labs and/or images reviewed: Labs reviewed by me, Image(s) reviewed by me Assessment/Plan Assessment/Plan Right foot and ankle cellulitis , osteomyelitis ruled out by negative MRI, podiatric consult by Dr Ricardo appreciated, advised conservative management with Wound Care, blood cultures negative continue Zosyn vanco Hypertension Acute kidney injury versus chronic kidney disease History of right great toe amputation Hard of hearing Blood cultures negative Alzheimer dementia Per Patient, his has severe dementia and deafness Daughter Clyde lives in [place], Time Spent 50 minutes Patient is full code Plan discussed with: Patient My Orders Orders - BERNARDO JEFF MD Procedure Category Date Status Time Apply Barrier Cream CHAYA 02/25/25 In Process 11:15 Date of Service: February 26, 2025 Billing Provider: BERNARDO JEFF MD Common Visit Codes: [id number] INP/OBS CARE(HIGH) BERNARDO JEFF MD February 26, 2025 11:48
[2025-02-26 13:17] VITALS: BP 120/66; PULSE 69; RESP 17; TEMP 98.4; O2SAT 99
--- NOTE | 2025-02-26 16:05 | MEDREC ---
[facility] Intervention Section I [facility] Intervention: Review courses of therapy (IN ABSENCE OF RISK FACTORS FOR MRSA, NON-PURULENT CELLULITIS, AND HEMODYNAMICLLY STABLE PATIENT PLEASE CONSIDER DE-ESCALATION OF ANTIBIOTIC ) BRENNON COYLE PHARMACIST February 26, 2025 16:05
[2025-02-26 17:04] VITALS: BP 156/80; PULSE 75; RESP 16; TEMP 98.1; O2SAT 97
[2025-02-26 21:00] VITALS: BP 148/70; PULSE 83; RESP 16; TEMP 97.3; O2SAT 94
[2025-02-27] VITALS (8 sets, daily range): BP systolic 135–158; BP diastolic 61–85; PULSE 66–96; RESP 16–18; TEMP 97.3–98.6; O2SAT 96–97
--- NOTE | 2025-02-27 10:39 | DVHPN2 ---
Reviewed: Care Plan, H&P, Labs, Medications, Previous Orders, Radiology Changes from previous H/P or p: No Changes Eyes: No Pain, No Vision change, No Conjunctivae inflammation, No Eyelid inflammation, No Other, No Redness ENT: No Ear pain, No Ear discharge, No Nose pain, No Nose discharge, No Nose congestion, No Mouth pain, No Mouth swelling, No Throat pain, No Throat swelling, No Other Cardiovascular: No Chest Pain, No Palpitations, No Orthopnea, No Paroxysmal Noc. Dyspnea, No Edema, No Lt Headedness, No Other Respiratory: No Cough, No Dry, No Shortness of breath, No SOB with excertion, No Wheezing, No Hemoptysis, No Pleuritic Pain, No Sputum, No Other Gastrointestinal: No Nausea, No Vomiting, No Abdominal Pain, No Diarrhea, No Constipation, No Melena, No Hematochezia, No Other Genitourinary: No Dysuria, No Frequency, No Incontinence, No Hematuria, No Retention, No Other Musculoskeletal: No other, No neck pain, No shoulder pain, No arm pain, No back pain, No hand pain, No leg pain; foot pain (Right) Skin: No Rash, No Lesions, No Jaundice, No Bruising, No Other Objective Vitals Vital Signs Date Time Temp Pulse Resp B/P (MAP) Pulse Ox O2 Delivery O2 Flow Rate FiO2 02/27/25 05:00 97.4 73 16 157/72 (100) 97 97.4 02/26/25 20:00 Room Air* 0 21 Intake/Output Intake and Output 02/27/25 07:00 Intake Total 1400 ml Balance 1400 ml Intake Oral 1100 ml IV Total 300 ml # Voids 4 General Appearance: Alert, Oriented X3, Cooperative, No acute distress Extremities: Other (Right foot and ankle edema and erythema) Medications Current Medications Medications Dose Ordered Sig/Syed Route Start Time Stop Time Status Last Admin Dose Admin Vancomycin HCl 0 ml @ 0 mls/hr UD IV 02/22/25 23:45 Hydralazine HCl 10 mg Q6HP PRN IV 02/23/25 01:45 02/25/25 15:21 10 MG Tamsulosin HCl 0.4 mg QPM PO 02/23/25 18:00 02/26/25 18:28 0.4 MG Famotidine 20 mg Q12HR IV 02/23/25 10:00 02/26/25 22:42 20 MG Sodium Chloride 10 ml Q8HR IV 02/23/25 06:00 02/27/25 05:24 10 ML Acetaminophen/ Hydrocodone Bitart 1 tab Q4HP PRN PO 02/23/25 01:45 02/23/25 21:11 1 TAB Temazepam 15 mg QHSP PRN PO 02/23/25 01:45 02/24/25 02:25 15 MG Ondansetron HCl 4 mg Q4HP PRN IV 02/23/25 01:45 Docusate Sodium 100 mg BIDPRN PRN PO 02/23/25 01:45 Zinc Sulfate 220 mg DAILY PO 02/23/25 10:00 02/26/25 09:37 220 MG Ascorbic Acid 500 mg BID PO 02/23/25 10:00 02/26/25 22:42 500 MG Acetaminophen 650 mg Q6HP PRN PO 02/23/25 01:45 02/25/25 21:22 650 MG Nitroglycerin 0.4 mg Q5MINP PRN SL 02/23/25 01:45 Morphine Sulfate 2 mg Q30M PRN IV 02/23/25 01:45 Amlodipine Besylate 5 mg DAILY PO 02/23/25 10:00 02/26/25 09:38 5 MG Piperacillin Sod/ Tazobactam Sod 100 ml @ 25 mls/hr Q8HR IV 02/23/25 14:00 02/27/25 05:24 25 MLS/HR Vancomycin HCl 200 ml @ 200 mls/hr Q24H IV 02/27/25 12:00 Laboratory Results Laboratory Tests 02/24/25 05:31 02/27/25 06:11 Microbiology Microbiology Date/Time Source Procedure Growth Status 02/22/25 21:17 Blood Blood Culture - Preliminary NO GROWTH AFTER 72 HOURS OF INCUBATION. Resulted Labs and/or images reviewed: Labs reviewed by me, Image(s) reviewed by me Assessment/Plan Assessment/Plan Right foot and ankle cellulitis , osteomyelitis ruled out by negative MRI, podiatric consult by Dr Ricardo appreciated, advised conservative management with Wound Care, blood cultures negative continue Zosyn vanco Hypertension Acute kidney injury versus chronic kidney disease History of right great toe amputation Hard of hearing Blood cultures negative Alzheimer dementia Per Patient, his has severe dementia and deafness Daughter Clyde lives in [place], Spoke with other daughter Renetta [phone] on the phone and she is agreeable for the patient to be [facility] for 3-4 weeks Time Spent 50 minutes Patient is full code Plan discussed with: Patient Date of Service: February 27, 2025 Billing Provider: BERNARDO JEFF MD Common Visit Codes: [id number] INP/OBS CARE(HIGH) BERNARDO JEFF MD February 27, 2025 10:39
[2025-02-27] MEDS: VANCOMYCIN 1GM/200ML PM 200 ML IV SCH (12:43)
[2025-02-27 13:19] LABS: INR 1.07 (0.9-1.15); Partial Thromboplastin Time 28.5 SEC (24.5-34.5); Prothrombin Time 11.3 sec (9.3-11.8)
[2025-02-27] MEDS: LIDOCAINE 1% (LOCAL ANESTH.) PF 5ml SDV ID ONE (15:30)
[2025-02-27] MEDS: SODIUM CHLOR 0.9% PF (SALINE LOCK) 10ML VIAL/SYR IV SCH (21:36)
[2025-02-28] VITALS (9 sets, daily range): BP systolic 108–166; BP diastolic 60–84; PULSE 65–79; RESP 16–20; TEMP 97.6–98.3; O2SAT 94–98
--- NOTE | 2025-02-28 09:38 | DVHPN2 ---
Reviewed: Care Plan, H&P, Labs, Medications, Previous Orders, Radiology Changes from previous H/P or p: No Changes Eyes: No Pain, No Vision change, No Conjunctivae inflammation, No Eyelid inflammation, No Other, No Redness ENT: No Ear pain, No Ear discharge, No Nose pain, No Nose discharge, No Nose congestion, No Mouth pain, No Mouth swelling, No Throat pain, No Throat swelling, No Other Cardiovascular: No Chest Pain, No Palpitations, No Orthopnea, No Paroxysmal Noc. Dyspnea, No Edema, No Lt Headedness, No Other Respiratory: No Cough, No Dry, No Shortness of breath, No SOB with excertion, No Wheezing, No Hemoptysis, No Pleuritic Pain, No Sputum, No Other Gastrointestinal: No Nausea, No Vomiting, No Abdominal Pain, No Diarrhea, No Constipation, No Melena, No Hematochezia, No Other Genitourinary: No Dysuria, No Frequency, No Incontinence, No Hematuria, No Retention, No Other Musculoskeletal: No other, No neck pain, No shoulder pain, No arm pain, No back pain, No hand pain, No leg pain; foot pain (Right) Skin: No Rash, No Lesions, No Jaundice, No Bruising, No Other Objective Vitals Vital Signs Date Time Temp Pulse Resp B/P (MAP) Pulse Ox O2 Delivery O2 Flow Rate FiO2 02/28/25 08:50 98.3 70 18 143/83 (103) 95 98.3 02/28/25 08:00 Room Air* 0 21 Intake/Output Intake and Output 02/28/25 07:00 Intake Total 2017 ml Balance 2018 ml Intake Oral 1618 ml IV Total 400 ml # Voids 6 General Appearance: Alert, Oriented X3, Cooperative, No acute distress Extremities: Other (Right foot and ankle edema and erythema) Medications Current Medications Medications Dose Ordered Sig/Syed Route Start Time Stop Time Status Last Admin Dose Admin Vancomycin HCl 0 ml @ 0 mls/hr UD IV 02/22/25 23:45 Hydralazine HCl 10 mg Q6HP PRN IV 02/23/25 01:45 02/25/25 15:21 10 MG Tamsulosin HCl 0.4 mg QPM PO 02/23/25 18:00 02/27/25 17:55 0.4 MG Famotidine 20 mg Q12HR IV 02/23/25 10:00 02/27/25 21:35 20 MG Acetaminophen/ Hydrocodone Bitart 1 tab Q4HP PRN PO 02/23/25 01:45 02/23/25 21:11 1 TAB Temazepam 15 mg QHSP PRN PO 02/23/25 01:45 02/24/25 02:25 15 MG Ondansetron HCl 4 mg Q4HP PRN IV 02/23/25 01:45 Docusate Sodium 100 mg BIDPRN PRN PO 02/23/25 01:45 Zinc Sulfate 220 mg DAILY PO 02/23/25 10:00 02/27/25 10:32 220 MG Ascorbic Acid 500 mg BID PO 02/23/25 10:00 02/27/25 21:35 500 MG Acetaminophen 650 mg Q6HP PRN PO 02/23/25 01:45 02/25/25 21:22 650 MG Nitroglycerin 0.4 mg Q5MINP PRN SL 02/23/25 01:45 Morphine Sulfate 2 mg Q30M PRN IV 02/23/25 01:45 Amlodipine Besylate 5 mg DAILY PO 02/23/25 10:00 02/27/25 10:32 5 MG Piperacillin Sod/ Tazobactam Sod 100 ml @ 25 mls/hr Q8HR IV 02/23/25 14:00 02/28/25 05:40 25 MLS/HR Vancomycin HCl 200 ml @ 200 mls/hr Q24H IV 02/27/25 12:00 02/27/25 12:43 200 MLS/HR Sodium Chloride 10 ml QSHIFT@10,22 IV 02/27/25 22:00 02/27/25 21:36 10 ML Laboratory Results Laboratory Tests 02/24/25 05:31 02/28/25 05:03 Coagulation Test 02/27/25 12:42 Prothrombin Time 11.3 sec (9.3-11.8) Prothrombin Time INR 1.07 (0.9-1.15) Activated Partial Thromboplast Time 28.5 SEC (24.5-34.5) Microbiology Microbiology Date/Time Source Procedure Growth Status 02/22/25 21:17 Blood Blood Culture - Final NO GROWTH AFTER 5 DAYS OF INCUBATION. Complete Labs and/or images reviewed: Labs reviewed by me, Image(s) reviewed by me Assessment/Plan Assessment/Plan Right foot and ankle cellulitis , osteomyelitis ruled out by negative MRI, podiatric consult by Dr Ricardo appreciated, advised conservative management with Wound Care, blood cultures negative continue Zosyn vanco Hypertension Acute kidney injury versus chronic kidney disease History of right great toe amputation Hard of hearing Blood cultures negative Alzheimer dementia Per Patient, his has severe dementia and deafness Daughter Clyde lives in [place], Spoke with other daughter Renetta [phone] on the phone and she is agreeable for the patient [facility] for 3-4 weeks Time Spent 50 minutes Patient is full code Plan discussed with: Patient My Orders Orders - BERNARDO JEFF MD Procedure Category Date Status Time * Picc Line Consult CONS 02/27/25 Transmitted 11:20 Nursing Protocol Picc CHAYA 02/27/25 In Process 15:30 Change Dressing Prn CHAYA 02/27/25 In Process 15:30 PICC BD 02/27/25 Transmitted 15:30 Sodium Chloride Lock PHA 02/27/25 In Process (Saline Lock Ns) 22:00 Do Not Use Picc For CHAYA 02/27/25 In Process Blood Cult 15:30 May Draw Blood From CHAYA 02/27/25 In Process Picc 15:30 Ok To Use Picc CHAYA 02/27/25 In Process 15:30 Change Picc Dressing CHAYA 02/27/25 In Process Q7 Days 15:30 Us Guided Vascular US 02/27/25 Taken Access 15:30 Date of Service: February 28, 2025 Billing Provider: BERNARDO JEFF MD Common Visit Codes: [id number] INP/OBS CARE(HIGH) BERNARDO JEFF MD February 28, 2025 09:38
--- NOTE | 2025-02-28 10:03 | DVHDS2 ---
Discharge Summary Date of Admission February 23, 2025 at 01:42 Date of Discharge: February 28, 2025 Admitting Diagnosis Right foot cellulitis Wounds: Right foot cellulitis Labs/Diagnostic Data: Laboratory Results Test 02/28/25 05:03 02/27/25 12:42 02/27/25 06:11 02/24/25 05:31 Creatinine 1.34 mg/dL (0.700-1.30) Glomerular Filtration Rate Calc 53 mL/min (>90) Prothrombin Time 11.3 sec (9.3-11.8) Prothrombin Time INR 1.07 (0.9-1.15) Activated Partial Thromboplast Time 28.5 SEC (24.5-34.5) Random Vancomycin Level 11.6 ug/mL (5-10) White Blood Count 3.4 10^3/uL (4.4-10.8) Red Blood Count 3.82 10^6/uL (4.5-5.90) Hemoglobin 11.0 g/dL (13.5-17.5) Hematocrit 33.0 % (41.0-53.0) Mean Corpuscular Volume 86.6 fL (80.0-100.0) Mean Corpuscular Hemoglobin 28.8 pg (28.0-32.0) Mean Corpuscular Hemoglobin Concent 33.3 g/dL (32.0-36.0) Red Cell Distribution Width 14.9 % (11.8-14.3) Platelet Count 155 10^3/uL (140-450) Mean Platelet Volume 8.0 fL (6.9-10.8) Neutrophils (%) (Auto) 54.8 % (37.0-80.0) Lymphocytes (%) (Auto) 28.5 % (10.0-50.0) Monocytes (%) (Auto) 9.3 % (0.0-12.0) Eosinophils (%) (Auto) 3.8 % (0.0-7.0) Basophils (%) (Auto) 3.6 % (0.0-2.0) Neutrophils # (Auto) 1.8 10 ^3/uL (1.6-8.6) Lymphocytes # (Auto) 1.0 10 ^3/uL (0.4-5.4) Monocytes # (Auto) 0.3 10 ^3/uL (0-1.3) Eosinophils # (Auto) 0.1 10 ^3/uL (0-0.8) Basophils # (Auto) 0.1 10 ^3/uL (0-0.2) Nucleated Red Blood Cells 0.1 % Sodium Level 140 mmol/L (136-145) Potassium Level 3.6 mmol/L (3.5-5.1) Chloride Level 106 mmol/L (98-107) Carbon Dioxide Level 24 mmol/L (20-31) Anion Gap 10 (5-15) Blood Urea Nitrogen 16 mg/dL (9-23) BUN/Creatinine Ratio 10.8 (10.0-20.0) Serum Glucose 127 mg/dL (74-106) Calcium Level 8.9 mg/dL (8.7-10.4) Total Bilirubin 0.6 mg/dL (0.2-1.0) Aspartate Amino Transferase (AST) 24 U/L (13-40) Alanine Aminotransferase (ALT) 15 U/L (7-40) Alkaline Phosphatase 43 U/L (46-116) Total Protein 5.4 g/dL (5.7-8.2) Albumin 3.5 g/dL (3.2-4.8) Test 02/23/25 09:02 02/22/25 21:17 Hepatitis B Surface Antigen Negative (Negative) Hepatitis C Antibody Negative (Negative) Lactic Acid Level 1.1 mmol/L (0.4-2.0) Troponin I High Sensitivity 12 ng/L (</=54) B-Type Natriuretic Peptide 91.41 pg/mL (0-100) Other Laboratory Tests 02/28/25 05:03 02/24/25 05:31 Brief Hx & Hospital Course: 79-year-old male with a history of hypertension hard of hearing chronic kidney disease came in for infection of the right foot. Found to have cellulitis of the right foot and ankle started on vancomycin and Zosyn blood cultures negative MRI of the right foot showed no osteomyelitis. Seen by pick pulling machine tender Dr Ricardo who advised IV antibiotics patient has Alzheimer dementia he has a history of right great toe amputation in the past discussed with the patient's daughter Renetta [phone] [facility] per her request. Patient agrees. Consults/Reason for consult Garage Manager Dr. Ricardo Operations or Procedures CT right foot MRI right foot Condition at Discharge: Fair Final Diagnosis/Problems List Right foot and ankle cellulitis , osteomyelitis ruled out by negative MRI, podiatric consult by Dr Ricardo appreciated, advised conservative management with Wound Care, blood cultures negative continue Zosyn vanco Hypertension Acute kidney injury versus chronic kidney disease History of right great toe amputation Hard of hearing Blood cultures negative Alzheimer dementia Discharge Disposition: Retirement Facility Discharge Instruct/Medications Diet: Regular Activity: Light activity Follow Up/Referral: Follow up with the long-term Medications: Vancomycin 1 g IV daily for 30 days Zosyn 3.375 g IV q.8 hours for 30 days Both for cellulitis right foot Discharge Statement: "Patient was advised to return to the ER or call 911 if any headaches, dizziness, shortness of breath, chest pain, abdominal pain, bleeding, fevers, or worsening of medical condition. Patient was counseled about treatment plan, medications, possible side effects, patientverbalized understanding. All questions were answered to the best of my ability. This discharge took greater then 30 minutes in planning, reviewing documentation, counseling the patient, and discussing with other team members." ASSESSMENT ASSESSMENT Hospital Course Uneventful Assessment Right foot and ankle cellulitis , osteomyelitis ruled out by negative MRI, podiatric consult by Dr Ricardo appreciated, advised conservative management with Wound Care, blood cultures negative continue Zosyn vanco Hypertension Acute kidney injury versus chronic kidney disease History of right great toe amputation Hard of hearing Blood cultures negative Alzheimer dementia Date of Service: February 28, 2025 Billing Provider: BERNARDO JEFF MD Common Visit Codes: [id number] DISCH DAY >30min BERNARDO JEFF MD February 28, 2025 10:03
[2025-02-28] MEDS ORDERED: PREG100C PO (12:59)
[2025-03-01 01:00] VITALS: BP 125/56; PULSE 70; RESP 18; TEMP 98.3; O2SAT 94
[2025-03-01 05:00] VITALS: BP 156/68; PULSE 62; RESP 17; TEMP 98.5; O2SAT 95
[2025-03-01] MEDS: IBUPROFEN 600 MG TAB PO ONE (05:55)
[2025-03-01 08:21] LABS: Basophils # (auto) 0.1 10 ^3/uL (0-0.2); Basophils % (auto) 1.4 % (0.0-2.0); Eosinophils # (auto) 0.1 10 ^3/uL (0-0.8); Eosinophils % (auto) 1.9 % (0.0-7.0); Hematocrit 37.1 % (41.0-53.0); Hemoglobin 13.1 g/dL (13.5-17.5); Lymphocytes # (auto) 0.9 10 ^3/uL (0.4-5.4); Lymphocytes % (auto) 21.3 % (10.0-50.0); Mean Corpuscular Hemoglobin 29.4 pg (28.0-32.0); Mean Corpuscular Hgb Conc. 35.3 g/dL (32.0-36.0); Mean Corpuscular Volume 83.5 fL (80.0-100.0); Monocytes # (auto) 0.4 10 ^3/uL (0-1.3); Monocytes % (auto) 9.2 % (0.0-12.0); Neutrophils # (auto) 2.9 10 ^3/uL (1.6-8.6); Neutrophils % (auto) 66.2 % (37.0-80.0); Nucleated Red Blood Cells % 0.1 %; Platelet Count (auto) 196 10^3/uL (140-450); Red Blood Cells 4.44 10^6/uL (4.5-5.90); Red Cell Distribution Width 14.2 % (11.8-14.3); White Blood Cell 4.4 10^3/uL (4.4-10.8)
[2025-03-01 08:32] VITALS: BP 150/78; PULSE 71; RESP 18; TEMP 98.4; O2SAT 97
--- NOTE | 2025-03-01 09:46 | DVHPN2 ---
Reviewed: Care Plan, H&P, Labs, Medications, Previous Orders, Radiology Changes from previous H/P or p: No Changes Eyes: No Pain, No Vision change, No Conjunctivae inflammation, No Eyelid inflammation, No Other, No Redness ENT: No Ear pain, No Ear discharge, No Nose pain, No Nose discharge, No Nose congestion, No Mouth pain, No Mouth swelling, No Throat pain, No Throat swelling, No Other Cardiovascular: No Chest Pain, No Palpitations, No Orthopnea, No Paroxysmal Noc. Dyspnea, No Edema, No Lt Headedness, No Other Respiratory: No Cough, No Dry, No Shortness of breath, No SOB with excertion, No Wheezing, No Hemoptysis, No Pleuritic Pain, No Sputum, No Other Gastrointestinal: No Nausea, No Vomiting, No Abdominal Pain, No Diarrhea, No Constipation, No Melena, No Hematochezia, No Other Genitourinary: No Dysuria, No Frequency, No Incontinence, No Hematuria, No Retention, No Other Musculoskeletal: No other, No neck pain, No shoulder pain, No arm pain, No back pain, No hand pain, No leg pain; foot pain (Right) Skin: No Rash, No Lesions, No Jaundice, No Bruising, No Other Objective Vitals Vital Signs Date Time Temp Pulse Resp B/P (MAP) Pulse Ox O2 Delivery O2 Flow Rate FiO2 03/01/25 08:32 98.4 71 18 150/78 (102) 97 98.4 03/01/25 07:35 Room Air* 0 21 Intake/Output Intake and Output 03/01/25 07:00 Intake Total 1255 ml Output Total 500 ml Balance 755 ml Intake Oral 855 ml IV Total 400 ml Output Urine Total 500 ml # Voids 2 General Appearance: Alert, Oriented X3, Cooperative, No acute distress Extremities: Other (Right foot and ankle edema and erythema) Medications Current Medications Medications Dose Ordered Sig/Syed Route Start Time Stop Time Status Last Admin Dose Admin Vancomycin HCl 0 ml @ 0 mls/hr UD IV 02/22/25 23:45 Hydralazine HCl 10 mg Q6HP PRN IV 02/23/25 01:45 02/28/25 21:19 10 MG Tamsulosin HCl 0.4 mg QPM PO 02/23/25 18:00 02/28/25 18:06 0.4 MG Famotidine 20 mg Q12HR IV 5/25/25 10:00 02/28/25 21:20 20 MG Acetaminophen/ Hydrocodone Bitart 1 tab Q4HP PRN PO 02/23/25 01:45 02/23/25 21:11 1 TAB Temazepam 15 mg QHSP PRN PO 02/23/25 01:45 02/24/25 02:25 15 MG Ondansetron HCl 4 mg Q4HP PRN IV 02/23/25 01:45 Docusate Sodium 100 mg BIDPRN PRN PO 02/23/25 01:45 Zinc Sulfate 220 mg DAILY PO 02/23/25 10:00 02/28/25 10:27 220 MG Ascorbic Acid 500 mg BID PO 02/23/25 10:00 02/28/25 21:18 500 MG Acetaminophen 650 mg Q6HP PRN PO 02/23/25 01:45 03/01/25 02:16 650 MG Nitroglycerin 0.4 mg Q5MINP PRN SL 02/23/25 01:45 Morphine Sulfate 2 mg Q30M PRN IV 02/23/25 01:45 Amlodipine Besylate 5 mg DAILY PO 02/23/25 10:00 02/28/25 10:35 5 MG Piperacillin Sod/ Tazobactam Sod 100 ml @ 25 mls/hr Q8HR IV 02/23/25 14:00 03/01/25 05:15 25 MLS/HR Vancomycin HCl 200 ml @ 200 mls/hr Q24H IV 02/27/25 12:00 02/28/25 11:59 200 MLS/HR Sodium Chloride 10 ml QSHIFT@10,22 IV 02/27/25 22:00 02/28/25 21:19 10 ML Laboratory Results Laboratory Tests 02/24/25 05:31 03/01/25 07:32 Microbiology Microbiology Date/Time Source Procedure Growth Status 02/22/25 21:17 Blood Blood Culture - Final NO GROWTH AFTER 5 DAYS OF INCUBATION. Complete Labs and/or images reviewed: Labs reviewed by me, Image(s) reviewed by me Assessment/Plan Assessment/Plan Right foot and ankle cellulitis , osteomyelitis ruled out by negative MRI, podiatric consult by Dr Ricardo appreciated, advised conservative management with Wound Care, blood cultures negative continue Zosyn vanco Hypertension Acute kidney injury versus chronic kidney disease History of right great toe amputation Hard of hearing Blood cultures negative Alzheimer dementia Per Patient, his has severe dementia and deafness Daughter Clyde lives in [place], Spoke with other daughter Renetta [phone] on the phone and she is agreeable for the patient to be discharged to halfway facility for IV antibiotics for 3-4 weeks, she is requesting patient be transferred to [facility] in [place] social service consult placed Time Spent 50 minutes Patient is full code Plan discussed with: Patient My Orders Orders - BERNARDO JEFF MD Procedure Category Date Status Time * Senior Air Director CONS 02/28/25 Transmitted Consult Discharge DISCHARGE 02/28/25 Transmitted 09:58 Date of Service: March 01, 2025 Billing Provider: BERNARDO JEFF MD Common Visit Codes: [id number] INP/OBS CARE(HIGH) BERNARDO JEFF MD March 01, 2025 09:46
--- NOTE | 2025-03-01 10:01 | DVHPN2 ---
Reviewed: Care Plan, H&P, Labs, Medications, Previous Orders, Radiology Changes from previous H/P or p: No Changes Eyes: No Pain, No Vision change, No Conjunctivae inflammation, No Eyelid inflammation, No Other, No Redness ENT: No Ear pain, No Ear discharge, No Nose pain, No Nose discharge, No Nose congestion, No Mouth pain, No Mouth swelling, No Throat pain, No Throat swelling, No Other Cardiovascular: No Chest Pain, No Palpitations, No Orthopnea, No Paroxysmal Noc. Dyspnea, No Edema, No Lt Headedness, No Other Respiratory: No Cough, No Dry, No Shortness of breath, No SOB with excertion, No Wheezing, No Hemoptysis, No Pleuritic Pain, No Sputum, No Other Gastrointestinal: No Nausea, No Vomiting, No Abdominal Pain, No Diarrhea, No Constipation, No Melena, No Hematochezia, No Other Genitourinary: No Dysuria, No Frequency, No Incontinence, No Hematuria, No Retention, No Other Musculoskeletal: No other, No neck pain, No shoulder pain, No arm pain, No back pain, No hand pain, No leg pain; foot pain (Right) Skin: No Rash, No Lesions, No Jaundice, No Bruising, No Other Objective Vitals Vital Signs Date Time Temp Pulse Resp B/P (MAP) Pulse Ox O2 Delivery O2 Flow Rate FiO2 03/01/25 08:32 98.4 71 18 150/78 (102) 97 98.4 03/01/25 07:35 Room Air* 0 21 Intake/Output Intake and Output 03/01/25 07:00 Intake Total 1255 ml Output Total 500 ml Balance 755 ml Intake Oral 855 ml IV Total 400 ml Output Urine Total 500 ml # Voids 2 General Appearance: Alert, Oriented X3, Cooperative, No acute distress Extremities: Other (Right foot and ankle edema and erythema) Medications Current Medications Medications Dose Ordered Sig/Syed Route Start Time Stop Time Status Last Admin Dose Admin Vancomycin HCl 0 ml @ 0 mls/hr UD IV 02/22/25 23:45 Hydralazine HCl 10 mg Q6HP PRN IV 02/23/25 01:45 02/28/25 21:19 10 MG Tamsulosin HCl 0.4 mg QPM PO 02/23/25 18:00 02/28/25 18:06 0.4 MG Famotidine 20 mg Q12HR IV 5/25/25 10:00 02/28/25 21:20 20 MG Acetaminophen/ Hydrocodone Bitart 1 tab Q4HP PRN PO 02/23/25 01:45 02/23/25 21:11 1 TAB Temazepam 15 mg QHSP PRN PO 02/23/25 01:45 02/24/25 02:25 15 MG Ondansetron HCl 4 mg Q4HP PRN IV 02/23/25 01:45 Docusate Sodium 100 mg BIDPRN PRN PO 02/23/25 01:45 Zinc Sulfate 220 mg DAILY PO 02/23/25 10:00 02/28/25 10:27 220 MG Ascorbic Acid 500 mg BID PO 02/23/25 10:00 02/28/25 21:18 500 MG Acetaminophen 650 mg Q6HP PRN PO 02/23/25 01:45 03/01/25 02:16 650 MG Nitroglycerin 0.4 mg Q5MINP PRN SL 02/23/25 01:45 Morphine Sulfate 2 mg Q30M PRN IV 02/23/25 01:45 Amlodipine Besylate 5 mg DAILY PO 02/23/25 10:00 02/28/25 10:35 5 MG Piperacillin Sod/ Tazobactam Sod 100 ml @ 25 mls/hr Q8HR IV 02/23/25 14:00 03/01/25 05:15 25 MLS/HR Vancomycin HCl 200 ml @ 200 mls/hr Q24H IV 02/27/25 12:00 02/28/25 11:59 200 MLS/HR Sodium Chloride 10 ml QSHIFT@10,22 IV 02/27/25 22:00 02/28/25 21:19 10 ML Laboratory Results Laboratory Tests 02/24/25 05:31 03/01/25 07:32 Microbiology Microbiology Date/Time Source Procedure Growth Status 02/22/25 21:17 Blood Blood Culture - Final NO GROWTH AFTER 5 DAYS OF INCUBATION. Complete Labs and/or images reviewed: Labs reviewed by me, Image(s) reviewed by me Assessment/Plan Assessment/Plan Right foot and ankle cellulitis , osteomyelitis ruled out by negative MRI, podiatric consult by Dr Ricardo appreciated, advised conservative management with Wound Care, blood cultures negative continue Zosyn vanco Hypertension Acute kidney injury versus chronic kidney disease History of right great toe amputation Hard of hearing Blood cultures negative Alzheimer dementia Per Patient, his has severe dementia and deafness Daughter Clyde lives in [place], Spoke with other daughter Renetta [phone] on the phone and she is agreeable for the patient to be discharged to [facility] for IV antibiotics for 3-4 weeks, she is requesting patient be transferred to [facility] in [place] social service consult placed Time Spent 50 minutes Patient is full code Plan discussed with: Patient My Orders Orders - BERNARDO JEFF MD Procedure Category Date Status Time * Armed Security Guard CONS 03/01/25 Transmitted Consult Date of Service: March 01, 2025 Billing Provider: BERNARDO JEFF MD Common Visit Codes: [id number] INP/OBS CARE(HIGH) BERNARDO JEFF MD March 01, 2025 10:00
[2025-03-01 12:45] VITALS: BP 142/76; PULSE 83; RESP 18; TEMP 98.3; O2SAT 97
[2025-03-01] MEDS: PREGABALIN 25 MG CAP PO ONE (13:48)
[2025-03-01 16:31] VITALS: BP 139/71; PULSE 72; RESP 18; TEMP 98.4; O2SAT 97
[2025-03-01] MEDS ORDERED: FOLI-119 PO (17:28)
[2025-03-01] MEDS ORDERED: FINA5TAB4 PO (17:28)
[2025-03-01] MEDS ORDERED: TAMS1CAP25 PO (17:28)
[2025-03-01] MEDS ORDERED: PANT40TA2 PO (17:28)
[2025-03-01] MEDS ORDERED: FENO145T27 PO (17:28)
[2025-03-01] MEDS ORDERED: TEMA15CA PO (17:28)
[2025-03-01 21:17] VITALS: BP 159/83; PULSE 67; RESP 18; TEMP 98.4; O2SAT 96
[2025-03-01] MEDS: PREGABALIN 25 MG CAP PO SCH (21:24)
[2025-03-02] VITALS (8 sets, daily range): BP systolic 122–149; BP diastolic 61–84; PULSE 60–80; RESP 18–20; TEMP 97.3–98.8; O2SAT 93–98
[2025-03-02 06:23] LABS: Basophils # (auto) 0.1 10 ^3/uL (0-0.2); Basophils % (auto) 1.5 % (0.0-2.0); Eosinophils # (auto) 0.1 10 ^3/uL (0-0.8); Hematocrit 37.4 % (41.0-53.0); Hemoglobin 12.8 g/dL (13.5-17.5); Lymphocytes % (auto) 24.2 % (10.0-50.0); Mean Corpuscular Hemoglobin 28.8 pg (28.0-32.0); Mean Corpuscular Hgb Conc. 34.3 g/dL (32.0-36.0); Mean Corpuscular Volume 84.2 fL (80.0-100.0); Monocytes # (auto) 0.4 10 ^3/uL (0-1.3); Monocytes % (auto) 10.1 % (0.0-12.0); Neutrophils # (auto) 2.6 10 ^3/uL (1.6-8.6); Neutrophils % (auto) 62.2 % (37.0-80.0); Platelet Count (auto) 205 10^3/uL (140-450); Red Blood Cells 4.45 10^6/uL (4.5-5.90); Red Cell Distribution Width 14.6 % (11.8-14.3); White Blood Cell 4.2 10^3/uL (4.4-10.8)
--- NOTE | 2025-03-02 11:03 | DVHPN2 ---
Reviewed: Care Plan, H&P, Labs, Medications, Previous Orders, Radiology Changes from previous H/P or p: No Changes Eyes: No Pain, No Vision change, No Conjunctivae inflammation, No Eyelid inflammation, No Other, No Redness ENT: No Ear pain, No Ear discharge, No Nose pain, No Nose discharge, No Nose congestion, No Mouth pain, No Mouth swelling, No Throat pain, No Throat swelling, No Other Cardiovascular: No Chest Pain, No Palpitations, No Orthopnea, No Paroxysmal Noc. Dyspnea, No Edema, No Lt Headedness, No Other Respiratory: No Cough, No Dry, No Shortness of breath, No SOB with excertion, No Wheezing, No Hemoptysis, No Pleuritic Pain, No Sputum, No Other Gastrointestinal: No Nausea, No Vomiting, No Abdominal Pain, No Diarrhea, No Constipation, No Melena, No Hematochezia, No Other Genitourinary: No Dysuria, No Frequency, No Incontinence, No Hematuria, No Retention, No Other Musculoskeletal: foot pain Skin: No Rash, No Lesions, No Jaundice, No Bruising, No Other Objective Vitals Vital Signs Date Time Temp Pulse Resp B/P (MAP) Pulse Ox O2 Delivery O2 Flow Rate FiO2 03/02/25 10:57 149/84 03/02/25 08:34 98.3 69 18 98 98.3 03/01/25 20:00 Room Air* 0 21 Intake/Output Intake and Output 03/02/25 07:00 Intake Total 950 ml Balance 950 ml Intake Oral 550 ml IV Total 400 ml # Voids 4 # Bowel Movements 2 General Appearance: Alert, Oriented X3, Cooperative, No acute distress Extremities: Other Medications Current Medications Medications Dose Ordered Sig/Syde Route Start Time Stop Time Status Last Admin Dose Admin Vancomycin HCl 0 ml @ 0 mls/hr UD IV 02/22/25 23:45 Hydralazine HCl 10 mg Q6HP PRN IV 02/23/25 01:45 03/01/25 21:25 10 MG Tamsulosin HCl 0.4 mg QPM PO 02/23/25 18:00 03/01/25 17:49 0.4 MG Famotidine 20 mg Q12HR IV 02/23/25 10:00 03/02/25 10:54 20 MG Acetaminophen/ Hydrocodone Bitart 1 tab Q4HP PRN PO 02/23/25 01:45 02/23/25 21:11 1 TAB Ondansetron HCl 4 mg Q4HP PRN IV 02/23/25 01:45 Docusate Sodium 100 mg BIDPRN PRN PO 02/23/25 01:45 Zinc Sulfate 220 mg DAILY PO 02/23/25 10:00 03/02/25 10:57 220 MG Ascorbic Acid 500 mg BID PO 02/23/25 10:00 03/02/25 10:57 500 MG Acetaminophen 650 mg Q6HP PRN PO 02/23/25 01:45 03/01/25 02:16 650 MG Nitroglycerin 0.4 mg Q5MINP PRN SL 02/23/25 01:45 Morphine Sulfate 2 mg Q30M PRN IV 02/23/25 01:45 Amlodipine Besylate 5 mg DAILY PO 02/23/25 10:00 03/02/25 10:57 5 MG Piperacillin Sod/ Tazobactam Sod 100 ml @ 25 mls/hr Q8HR IV 02/23/25 14:00 03/02/25 05:26 25 MLS/HR Vancomycin HCl 200 ml @ 200 mls/hr Q24H IV 02/27/25 12:00 03/01/25 12:17 200 MLS/HR Sodium Chloride 10 ml QSHIFT@10,22 IV 02/27/25 22:00 03/02/25 10:00 10 ML Pregabalin 50 mg BID PO 03/01/25 22:00 03/02/25 10:54 50 MG Laboratory Results Laboratory Tests 02/24/25 05:31 03/02/25 04:18 Microbiology Microbiology Date/Time Source Procedure Growth Status 02/22/25 21:17 Blood Blood Culture - Final NO GROWTH AFTER 5 DAYS OF INCUBATION. Complete Labs and/or images reviewed: Labs reviewed by me, Image(s) reviewed by me Assessment/Plan Assessment/Plan Right foot and ankle cellulitis , osteomyelitis ruled out by negative MRI, podiatric consult by Dr Ricardo appreciated, advised conservative management with Wound Care, blood cultures negative continue Zosyn vanco Hypertension Acute kidney injury versus chronic kidney disease History of right great toe amputation Hard of hearing Blood cultures negative Alzheimer dementia Per Patient, his has severe dementia and deafness Daughter Clyde lives in [place], Spoke with other daughter Renetta [phone] on the phone and she is agreeable for the patient to be discharged to [facility] facility for IV antibiotics for 3-4 weeks, she is requesting patient be transferred to [facility] in [facility] consult placed field services director working on transfer Plan discussed with: Patient My Orders Orders - BERNARDO JEFF MD Procedure Category Date Status Time Pregabalin Capsule PHA 03/01/25 In Process (Lyrica Capsule) 22:00 Cardiac DIET 03/01/25 Transmitted Diet-2gna,Lofat,Lochol Dinner Date of Service: Mar 02, 2025 Billing Provider: BERNARDO JEFF MD Common Visit Codes: [id number] INP/OBS CARE(HIGH) BERNARDO JEFF MD Mar 02, 2025 11:03
[2025-03-03] VITALS (7 sets, daily range): BP systolic 125–165; BP diastolic 58–79; PULSE 59–75; RESP 17–19; TEMP 97.5–98.2; O2SAT 97–100
[2025-03-03 07:39] LABS: Basophils # (auto) 0.1 10 ^3/uL (0-0.2); Basophils % (auto) 2.4 % (0.0-2.0); Eosinophils # (auto) 0.1 10 ^3/uL (0-0.8); Eosinophils % (auto) 2.4 % (0.0-7.0); Hematocrit 37.4 % (41.0-53.0); Hemoglobin 12.7 g/dL (13.5-17.5); Lymphocytes # (auto) 0.9 10 ^3/uL (0.4-5.4); Lymphocytes % (auto) 23.3 % (10.0-50.0); Mean Corpuscular Hemoglobin 28.8 pg (28.0-32.0); Mean Corpuscular Hgb Conc. 34.1 g/dL (32.0-36.0); Mean Corpuscular Volume 84.4 fL (80.0-100.0); Monocytes # (auto) 0.4 10 ^3/uL (0-1.3); Monocytes % (auto) 9.7 % (0.0-12.0); Neutrophils # (auto) 2.4 10 ^3/uL (1.6-8.6); Neutrophils % (auto) 62.2 % (37.0-80.0); Nucleated Red Blood Cells % 0.1 %; Platelet Count (auto) 215 10^3/uL (140-450); Red Blood Cells 4.43 10^6/uL (4.5-5.90); Red Cell Distribution Width 14.7 % (11.8-14.3); White Blood Cell 3.9 10^3/uL (4.4-10.8)
--- NOTE | 2025-03-03 12:02 | DVHPN2 ---
Reviewed: Care Plan, H&P, Labs, Medications, Previous Orders, Radiology Changes from previous H/P or p: No Changes Eyes: No Pain, No Vision change, No Conjunctivae inflammation, No Eyelid inflammation, No Other, No Redness ENT: No Ear pain, No Ear discharge, No Nose pain, No Nose discharge, No Nose congestion, No Mouth pain, No Mouth swelling, No Throat pain, No Throat swelling, No Other Cardiovascular: No Chest Pain, No Palpitations, No Orthopnea, No Paroxysmal Noc. Dyspnea, No Edema, No Lt Headedness, No Other Respiratory: No Cough, No Dry, No Shortness of breath, No SOB with excertion, No Wheezing, No Hemoptysis, No Pleuritic Pain, No Sputum, No Other Gastrointestinal: No Nausea, No Vomiting, No Abdominal Pain, No Diarrhea, No Constipation, No Melena, No Hematochezia, No Other Genitourinary: No Dysuria, No Frequency, No Incontinence, No Hematuria, No Retention, No Other Musculoskeletal: foot pain Skin: No Rash, No Lesions, No Jaundice, No Bruising, No Other Objective Vitals Vital Signs Date Time Temp Pulse Resp B/P (MAP) Pulse Ox O2 Delivery O2 Flow Rate FiO2 03/03/25 11:02 143/72 03/03/25 08:31 97.8 75 18 98 97.8 03/03/25 08:00 Room Air* 0 21 Intake/Output Intake and Output 03/03/25 07:00 Intake Total 725 ml Balance 725 ml Intake Oral 625 ml IV Total 100 ml # Voids 5 # Bowel Movements 1 General Appearance: Alert, Oriented X3, Cooperative, No acute distress Extremities: Other Medications Current Medications Medications Dose Ordered Sig/Syed Route Start Time Stop Time Status Last Admin Dose Admin Vancomycin HCl 0 ml @ 0 mls/hr UD IV 02/22/25 23:45 Hydralazine HCl 10 mg Q6HP PRN IV 02/23/25 01:45 03/01/25 21:25 10 MG Tamsulosin HCl 0.4 mg QPM PO 02/23/25 18:00 03/02/25 17:14 0.4 MG Famotidine 20 mg Q12HR IV 02/23/25 10:00 03/03/25 11:02 20 MG Acetaminophen/ Hydrocodone Bitart 1 tab Q4HP PRN PO 02/23/25 01:45 02/23/25 21:11 1 TAB Ondansetron HCl 4 mg Q4HP PRN IV 02/23/25 01:45 Docusate Sodium 100 mg BIDPRN PRN PO 02/23/25 01:45 Zinc Sulfate 220 mg DAILY PO 02/23/25 10:00 03/03/25 11:02 220 MG Ascorbic Acid 500 mg BID PO 02/23/25 10:00 03/03/25 11:02 500 MG Acetaminophen 650 mg Q6HP PRN PO 02/23/25 01:45 03/01/25 02:16 650 MG Nitroglycerin 0.4 mg Q5MINP PRN SL 02/23/25 01:45 Morphine Sulfate 2 mg Q30M PRN IV 02/23/25 01:45 Amlodipine Besylate 5 mg DAILY PO 02/23/25 10:00 03/03/25 11:02 5 MG Piperacillin Sod/ Tazobactam Sod 100 ml @ 25 mls/hr Q8HR IV 02/23/25 14:00 03/03/25 07:56 25 MLS/HR Vancomycin HCl 200 ml @ 200 mls/hr Q24H IV 02/27/25 12:00 03/02/25 14:05 200 MLS/HR Sodium Chloride 10 ml QSHIFT@10,22 IV 02/27/25 22:00 03/03/25 10:00 10 ML Pregabalin 50 mg BID PO 03/01/25 22:00 03/03/25 11:01 50 MG Laboratory Results Laboratory Tests 02/24/25 05:31 03/03/25 07:21 Microbiology Microbiology Date/Time Source Procedure Growth Status 02/22/25 21:17 Blood Blood Culture - Final NO GROWTH AFTER 5 DAYS OF INCUBATION. Complete Labs and/or images reviewed: Labs reviewed by me, Image(s) reviewed by me Assessment/Plan Assessment/Plan Right foot and ankle cellulitis , osteomyelitis ruled out by negative MRI, podiatric consult by Dr Ricardo appreciated, advised conservative management with Wound Care, blood cultures negative continue Zosyn vanco Hypertension Acute kidney injury versus chronic kidney disease History of right great toe amputation Hard of hearing Blood cultures negative Alzheimer dementia Per Patient, his has severe dementia and deafness Daughter Clyde lives in [place], Spoke with other daughter Renetta [phone] on the phone and she is agreeable for the patient to be discharged to assisted facility for IV antibiotics for 3-4 weeks, she is requesting patient be transferred to [facility] in [facility] consult placed rehabilitation services director working on transfer No new complaints Plan discussed with: Patient Date of Service: Mar 03, 2025 Billing Provider: BERNARDO JEFF MD Common Visit Codes: [id number] INP/OBS CARE(HIGH) BERNARDO JEFF MD Mar 03, 2025 12:02
[2025-03-04] VITALS (7 sets, daily range): BP systolic 109–163; BP diastolic 44–85; PULSE 56–70; RESP 18–20; TEMP 97.4–97.9; O2SAT 91–98
--- NOTE | 2025-03-04 11:46 | DVHPN2 ---
Reviewed: Care Plan, H&P, Labs, Medications, Previous Orders, Radiology Changes from previous H/P or p: No Changes Eyes: No Pain, No Vision change, No Conjunctivae inflammation, No Eyelid inflammation, No Other, No Redness ENT: No Ear pain, No Ear discharge, No Nose pain, No Nose discharge, No Nose congestion, No Mouth pain, No Mouth swelling, No Throat pain, No Throat swelling, No Other Cardiovascular: No Chest Pain, No Palpitations, No Orthopnea, No Paroxysmal Noc. Dyspnea, No Edema, No Lt Headedness, No Other Respiratory: No Cough, No Dry, No Shortness of breath, No SOB with excertion, No Wheezing, No Hemoptysis, No Pleuritic Pain, No Sputum, No Other Gastrointestinal: No Nausea, No Vomiting, No Abdominal Pain, No Diarrhea, No Constipation, No Melena, No Hematochezia, No Other Genitourinary: No Dysuria, No Frequency, No Incontinence, No Hematuria, No Retention, No Other Musculoskeletal: foot pain Skin: No Rash, No Lesions, No Jaundice, No Bruising, No Other Objective Vitals Vital Signs Date Time Temp Pulse Resp B/P (MAP) Pulse Ox O2 Delivery O2 Flow Rate FiO2 03/04/25 09:51 151/71 03/04/25 09:00 97.4 60 18 98 97.4 03/04/25 08:00 Room Air* 0 21 Intake/Output Intake and Output 03/04/25 07:00 Intake Total 908 ml Balance 908 ml Intake Oral 508 ml IV Total 400 ml # Voids 6 # Bowel Movements 1 General Appearance: Alert, Oriented X3, Cooperative, No acute distress Extremities: Other Medications Current Medications Medications Dose Ordered Sig/Syed Route Start Time Stop Time Status Last Admin Dose Admin Vancomycin HCl 0 ml @ 0 mls/hr UD IV 02/22/25 23:45 Hydralazine HCl 10 mg Q6HP PRN IV 02/23/25 01:45 03/01/25 21:25 10 MG Tamsulosin HCl 0.4 mg QPM PO 02/23/25 18:00 03/03/25 17:32 0.4 MG Famotidine 20 mg Q12HR IV 02/23/25 10:00 03/04/25 09:50 20 MG Ondansetron HCl 4 mg Q4HP PRN IV 02/23/25 01:45 Docusate Sodium 100 mg BIDPRN PRN PO 02/23/25 01:45 Zinc Sulfate 220 mg DAILY PO 02/23/25 10:00 03/04/25 09:51 220 MG Ascorbic Acid 500 mg BID PO 02/23/25 10:00 03/04/25 09:51 500 MG Acetaminophen 650 mg Q6HP PRN PO 02/23/25 01:45 03/01/25 02:16 650 MG Nitroglycerin 0.4 mg Q5MINP PRN SL 02/23/25 01:45 Amlodipine Besylate 5 mg DAILY PO 02/23/25 10:00 03/04/25 09:51 5 MG Piperacillin Sod/ Tazobactam Sod 100 ml @ 25 mls/hr Q8HR IV 02/23/25 14:00 03/04/25 05:21 25 MLS/HR Vancomycin HCl 200 ml @ 200 mls/hr Q24H IV 02/27/25 12:00 03/03/25 12:00 200 MLS/HR Sodium Chloride 10 ml QSHIFT@10,22 IV 02/27/25 22:00 03/04/25 09:51 10 ML Pregabalin 50 mg BID PO 03/01/25 22:00 03/04/25 09:51 50 MG Laboratory Results Laboratory Tests 02/24/25 05:31 03/03/25 07:21 03/04/25 05:16 Microbiology Microbiology Date/Time Source Procedure Growth Status 02/22/25 21:17 Blood Blood Culture - Final NO GROWTH AFTER 5 DAYS OF INCUBATION. Complete Labs and/or images reviewed: Labs reviewed by me, Image(s) reviewed by me Assessment/Plan Assessment/Plan Right foot and ankle cellulitis , osteomyelitis ruled out by negative MRI, podiatric consult by Dr Ricardo appreciated, advised conservative management with Wound Care, blood cultures negative continue Zosyn vanco Hypertension Acute kidney injury versus chronic kidney disease History of right great toe amputation Hard of hearing Blood cultures negative Alzheimer dementia Per Patient, his has severe dementia and deafness Daughter Clyde lives in [place], Spoke with other daughter Renetta [phone] on the phone and she is agreeable for the patient to be discharged to snf facility for IV antibiotics for 3-4 weeks, [facility] placed visitor services representative working on transfer No new complaints Plan discussed with: Patient My Orders Orders - BERNARDO JEFF MD Procedure Category Date Status Time * Natural Resource Manager CONS 03/03/25 Transmitted Consult Date of Service: Mar 04, 2025 Billing Provider: BERNARDO JEFF MD Common Visit Codes: [id number] INP/OBS CARE(HIGH) BERNARDO JEFF MD Mar 04, 2025 11:46
[2025-03-05 01:00] VITALS: BP 149/79; PULSE 71; RESP 18; TEMP 97.5; O2SAT 95
[2025-03-05 05:00] VITALS: BP 146/72; PULSE 63; RESP 18; TEMP 97.7; O2SAT 97
[2025-03-05 09:00] VITALS: BP 140/63; PULSE 62; RESP 17; TEMP 97.5; O2SAT 95
[2025-03-05] MEDS: PANTOPRAZOLE 40 MG TAB PO ONE (09:45)
[2025-03-05] MEDS ORDERED: FAMOTIDINE (10MG/ML) 2ML VL IV SCH (10:00)
--- NOTE | 2025-03-05 10:23 | DVHPN2 ---
Reviewed: Care Plan, H&P, Labs, Medications, Previous Orders, Radiology Changes from previous H/P or p: No Changes Eyes: No Pain, No Vision change, No Conjunctivae inflammation, No Eyelid inflammation, No Other, No Redness ENT: No Ear pain, No Ear discharge, No Nose pain, No Nose discharge, No Nose congestion, No Mouth pain, No Mouth swelling, No Throat pain, No Throat swelling, No Other Cardiovascular: No Chest Pain, No Palpitations, No Orthopnea, No Paroxysmal Noc. Dyspnea, No Edema, No Lt Headedness, No Other Respiratory: No Cough, No Dry, No Shortness of breath, No SOB with excertion, No Wheezing, No Hemoptysis, No Pleuritic Pain, No Sputum, No Other Gastrointestinal: No Nausea, No Vomiting, No Abdominal Pain, No Diarrhea, No Constipation, No Melena, No Hematochezia, No Other Genitourinary: No Dysuria, No Frequency, No Incontinence, No Hematuria, No Retention, No Other Musculoskeletal: foot pain Skin: No Rash, No Lesions, No Jaundice, No Bruising, No Other Objective Vitals Vital Signs Date Time Temp Pulse Resp B/P (MAP) Pulse Ox O2 Delivery O2 Flow Rate FiO2 03/05/25 09:45 140/63 03/05/25 09:00 97.5 62 17 95 97.5 03/04/25 20:00 Room Air* 0 21 Intake/Output Intake and Output 03/05/25 07:00 Intake Total 1600 ml Output Total 300 ml Balance 1300 ml Intake Oral 1200 ml IV Total 400 ml Output Urine Total 300 ml # Voids 3 # Bowel Movements 2 General Appearance: Alert, Oriented X3, Cooperative, No acute distress Extremities: Other Medications Current Medications Medications Dose Ordered Sig/Syed Route Start Time Stop Time Status Last Admin Dose Admin Vancomycin HCl 0 ml @ 0 mls/hr UD IV 02/22/25 23:45 Hydralazine HCl 10 mg Q6HP PRN IV 02/23/25 01:45 03/01/25 21:25 10 MG Tamsulosin HCl 0.4 mg QPM PO 02/23/25 18:00 03/04/25 17:28 0.4 MG Ondansetron HCl 4 mg Q4HP PRN IV 02/23/25 01:45 Docusate Sodium 100 mg BIDPRN PRN PO 02/23/25 01:45 Zinc Sulfate 220 mg DAILY PO 02/23/25 10:00 03/05/25 09:44 220 MG Ascorbic Acid 500 mg BID PO 02/23/25 10:00 03/05/25 09:44 500 MG Acetaminophen 650 mg Q6HP PRN PO 02/23/25 01:45 03/01/25 02:16 650 MG Nitroglycerin 0.4 mg Q5MINP PRN SL 02/23/25 01:45 Amlodipine Besylate 5 mg DAILY PO 02/23/25 10:00 03/05/25 09:45 5 MG Piperacillin Sod/ Tazobactam Sod 100 ml @ 25 mls/hr Q8HR IV 02/23/25 14:00 03/05/25 05:30 25 MLS/HR Vancomycin HCl 200 ml @ 200 mls/hr Q24H IV 02/27/25 12:00 03/04/25 12:22 200 MLS/HR Sodium Chloride 10 ml QSHIFT@10,22 IV 02/27/25 22:00 03/05/25 09:50 10 ML Pregabalin 50 mg BID PO 03/01/25 22:00 03/05/25 09:44 50 MG Pantoprazole Sodium 40 mg DAILY@0600 PO 03/06/25 06:00 Laboratory Results Laboratory Tests 02/24/25 05:31 03/03/25 07:21 03/05/25 05:41 Microbiology Microbiology Date/Time Source Procedure Growth Status 02/22/25 21:17 Blood Blood Culture - Final NO GROWTH AFTER 5 DAYS OF INCUBATION. Complete Labs and/or images reviewed: Labs reviewed by me, Image(s) reviewed by me Assessment/Plan Assessment/Plan Right foot and ankle cellulitis , osteomyelitis ruled out by negative MRI, podiatric consult by Dr Ricardo appreciated, advised conservative management with Wound Care, blood cultures negative continue Zosyn vanco Hypertension Acute kidney injury versus chronic kidney disease History of right great toe amputation Hard of hearing Blood cultures negative Alzheimer dementia Per Patient, his has severe dementia and deafness Daughter Clyde lives in [place], Spoke with other daughter Renetta [phone] on the phone and she is agreeable for the patient to be discharged to [facility] facility for IV antibiotics for 3-4 weeks, she is requesting patient be transferred to [facility] in [facility] consult placed Examined today. No new complaints Family appealed the discharge plan to Medicare. Awaiting decision by Medicare. Plan discussed with: Patient My Orders Orders - BERNARDO JEFF MD Procedure Category Date Status Time Pantoprazole Tablet PHA 03/06/25 In Process (Protonix Tablet) 06:00 Date of Service: Mar 05, 2025 Billing Provider: BERNARDO JEFF MD Common Visit Codes: [id number] INP/OBS CARE(HIGH) BERNARDO JEFF MD Mar 05, 2025 10:23
[2025-03-05 12:30] VITALS: BP 146/65; PULSE 60; RESP 18; TEMP 97.5; O2SAT 98
[2025-03-05 16:56] VITALS: BP 119/53; PULSE 57; RESP 18; TEMP 97.6; O2SAT 98
[2025-03-05 21:00] VITALS: BP 135/71; PULSE 62; RESP 16; TEMP 98; O2SAT 99
[2025-03-06 01:00] VITALS: BP 122/69; PULSE 58; RESP 18; TEMP 98; O2SAT 98
[2025-03-06 05:00] VITALS: BP 143/79; PULSE 57; RESP 18; TEMP 97.9; O2SAT 95
[2025-03-06] MEDS: PANTOPRAZOLE 40 MG TAB PO SCH (05:41)
[2025-03-06 09:06] VITALS: BP 139/73; PULSE 68; RESP 17; TEMP 97.7; O2SAT 96
--- NOTE | 2025-03-06 09:49 | DVHPN2 ---
Reviewed: Care Plan, H&P, Labs, Medications, Previous Orders, Radiology Changes from previous H/P or p: No Changes Eyes: No Pain, No Vision change, No Conjunctivae inflammation, No Eyelid inflammation, No Other, No Redness ENT: No Ear pain, No Ear discharge, No Nose pain, No Nose discharge, No Nose congestion, No Mouth pain, No Mouth swelling, No Throat pain, No Throat swelling, No Other Cardiovascular: No Chest Pain, No Palpitations, No Orthopnea, No Paroxysmal Noc. Dyspnea, No Edema, No Lt Headedness, No Other Respiratory: No Cough, No Dry, No Shortness of breath, No SOB with excertion, No Wheezing, No Hemoptysis, No Pleuritic Pain, No Sputum, No Other Gastrointestinal: No Nausea, No Vomiting, No Abdominal Pain, No Diarrhea, No Constipation, No Melena, No Hematochezia, No Other Genitourinary: No Dysuria, No Frequency, No Incontinence, No Hematuria, No Retention, No Other Musculoskeletal: foot pain Skin: No Rash, No Lesions, No Jaundice, No Bruising, No Other Objective Vitals Vital Signs Date Time Temp Pulse Resp B/P (MAP) Pulse Ox O2 Delivery O2 Flow Rate FiO2 03/06/25 09:09 139/73 03/06/25 09:06 97.7 68 17 96 97.7 03/06/25 08:00 Room Air* 0 21 Intake/Output Intake and Output 03/06/25 07:00 Intake Total 1663 ml Balance 1663 ml Intake Oral 1238 ml IV Total 425 ml # Voids 7 # Bowel Movements 3 General Appearance: Alert, Oriented X3, Cooperative, No acute distress Extremities: Other Medications Current Medications Medications Dose Ordered Sig/Syed Route Start Time Stop Time Status Last Admin Dose Admin Hydralazine HCl 10 mg Q6HP PRN IV 02/23/25 01:45 03/01/25 21:25 10 MG Tamsulosin HCl 0.4 mg QPM PO 02/23/25 18:00 03/05/25 18:24 0.4 MG Ondansetron HCl 4 mg Q4HP PRN IV 02/23/25 01:45 Docusate Sodium 100 mg BIDPRN PRN PO 02/23/25 01:45 Zinc Sulfate 220 mg DAILY PO 02/23/25 10:00 03/06/25 09:07 220 MG Ascorbic Acid 500 mg BID PO 02/23/25 10:00 03/06/25 09:07 500 MG Acetaminophen 650 mg Q6HP PRN PO 02/23/25 01:45 03/01/25 02:16 650 MG Nitroglycerin 0.4 mg Q5MINP PRN SL 02/23/25 01:45 Amlodipine Besylate 5 mg DAILY PO 02/23/25 10:00 03/06/25 09:09 5 MG Piperacillin Sod/ Tazobactam Sod 100 ml @ 25 mls/hr Q8HR IV 02/23/25 14:00 03/06/25 05:41 25 MLS/HR Vancomycin HCl 200 ml @ 200 mls/hr Q24H IV 02/27/25 12:00 03/05/25 12:49 200 MLS/HR Sodium Chloride 10 ml QSHIFT@10,22 IV 02/27/25 22:00 03/05/25 21:43 10 ML Pregabalin 50 mg BID PO 03/01/25 22:00 03/06/25 09:09 50 MG Pantoprazole Sodium 40 mg DAILY@0600 PO 03/06/25 06:00 03/06/25 05:41 40 MG Laboratory Results Laboratory Tests 02/24/25 05:31 03/03/25 07:21 03/06/25 05:45 Microbiology Microbiology Date/Time Source Procedure Growth Status 02/22/25 21:17 Blood Blood Culture - Final NO GROWTH AFTER 5 DAYS OF INCUBATION. Complete Labs and/or images reviewed: Labs reviewed by me, Image(s) reviewed by me Assessment/Plan Assessment/Plan Right foot and ankle cellulitis , osteomyelitis ruled out by negative MRI, podiatric consult by Dr Ricardo appreciated, advised conservative management with Wound Care, blood cultures negative continue Zosyn vanco Hypertension Acute kidney injury versus chronic kidney disease History of right great toe amputation Hard of hearing Blood cultures negative Alzheimer dementia Per Patient, his has severe dementia and deafness Daughter Clyde lives in [place], Spoke with other daughter Renetta [phone] on the phone and she is agreeable for the patient to be discharged to residential facility for IV antibiotics for 3-4 weeks, she is requesting patient be transferred to [facility] in [facility] consult placed Examined today. No new complaints Family appealed the discharge plan to Medicare. Awaiting decision by Medicare. Time spent 35 minutes Plan discussed with: Patient Date of Service: Mar 06, 2025 Billing Provider: BERNARDO JEFF MD Common Visit Codes: [id number] INP/OBS CARE(HIGH) BERNARDO JEFF MD Mar 06, 2025 09:49
[2025-03-06 13:00] VITALS: BP 130/72; PULSE 67; RESP 18; TEMP 97.9; O2SAT 93
[2025-03-06 17:20] VITALS: BP 132/66; PULSE 82; RESP 19; TEMP 97.6; O2SAT 95
[2025-03-06 21:00] VITALS: BP 121/67; PULSE 59; RESP 18; TEMP 97.9; O2SAT 96
[2025-03-07 01:00] VITALS: BP 117/70; PULSE 45; RESP 17; TEMP 97.7; O2SAT 97
[2025-03-07 05:00] VITALS: BP 140/84; PULSE 74; RESP 18; TEMP 97.8; O2SAT 99
--- NOTE | 2025-03-07 11:57 | DVHPN2 ---
Reviewed: Care Plan, H&P, Labs, Medications, Previous Orders, Radiology Changes from previous H/P or p: No Changes Eyes: No Pain, No Vision change, No Conjunctivae inflammation, No Eyelid inflammation, No Other, No Redness ENT: No Ear pain, No Ear discharge, No Nose pain, No Nose discharge, No Nose congestion, No Mouth pain, No Mouth swelling, No Throat pain, No Throat swelling, No Other Cardiovascular: No Chest Pain, No Palpitations, No Orthopnea, No Paroxysmal Noc. Dyspnea, No Edema, No Lt Headedness, No Other Respiratory: No Cough, No Dry, No Shortness of breath, No SOB with excertion, No Wheezing, No Hemoptysis, No Pleuritic Pain, No Sputum, No Other Gastrointestinal: No Nausea, No Vomiting, No Abdominal Pain, No Diarrhea, No Constipation, No Melena, No Hematochezia, No Other Genitourinary: No Dysuria, No Frequency, No Incontinence, No Hematuria, No Retention, No Other Musculoskeletal: foot pain Skin: No Rash, No Lesions, No Jaundice, No Bruising, No Other Objective Vitals Vital Signs Date Time Temp Pulse Resp B/P (MAP) Pulse Ox O2 Delivery O2 Flow Rate FiO2 03/07/25 09:42 131/64 03/07/25 08:00 Room Air* 0 21 03/07/25 05:00 97.8 74 18 99 97.8 Intake/Output Intake and Output 03/07/25 07:00 Intake Total 100 ml Balance 100 ml Intake Oral 100 ml # Voids 6 # Bowel Movements 1 General Appearance: Alert, Oriented X3, Cooperative, No acute distress Extremities: Other Medications Current Medications Medications Dose Ordered Sig/Syed Route Start Time Stop Time Status Last Admin Dose Admin Hydralazine HCl 10 mg Q6HP PRN IV 02/23/25 01:45 03/01/25 21:25 10 MG Tamsulosin HCl 0.4 mg QPM PO 02/23/25 18:00 03/06/25 18:57 0.4 MG Ondansetron HCl 4 mg Q4HP PRN IV 02/23/25 01:45 Docusate Sodium 100 mg BIDPRN PRN PO 02/23/25 01:45 Zinc Sulfate 220 mg DAILY PO 02/23/25 10:00 03/07/25 09:36 220 MG Ascorbic Acid 500 mg BID PO 02/23/25 10:00 03/07/25 09:39 500 MG Acetaminophen 650 mg Q6HP PRN PO 02/23/25 01:45 03/01/25 02:16 650 MG Nitroglycerin 0.4 mg Q5MINP PRN SL 02/23/25 01:45 Amlodipine Besylate 5 mg DAILY PO 02/23/25 10:00 03/07/25 09:42 5 MG Vancomycin HCl 200 ml @ 200 mls/hr Q24H IV 02/27/25 12:00 03/06/25 14:12 200 MLS/HR Sodium Chloride 10 ml QSHIFT@10,22 IV 02/27/25 22:00 03/06/25 21:59 10 ML Pregabalin 50 mg BID PO 03/01/25 22:00 03/07/25 09:36 50 MG Pantoprazole Sodium 40 mg DAILY@0600 PO 03/06/25 06:00 03/07/25 05:17 40 MG Laboratory Results Laboratory Tests 02/24/25 05:31 03/03/25 07:21 03/07/25 05:47 Microbiology Microbiology Date/Time Source Procedure Growth Status 02/22/25 21:17 Blood Blood Culture - Final NO GROWTH AFTER 5 DAYS OF INCUBATION. Complete Assessment/Plan Assessment/Plan Right foot and ankle cellulitis , osteomyelitis ruled out by negative MRI, podiatric consult by Dr Davion pride, advised conservative management with Wound Care, blood cultures negative continue Zosyn vanco Hypertension Acute kidney injury versus chronic kidney disease History of right great toe amputation Hard of hearing Blood cultures negative Alzheimer dementia Per Patient, his has severe dementia and deafness Daughter Clyde lives in [place], Spoke with other daughter Renetta [phone] on the phone and she is agreeable for the patient to be discharged to longterm facility for IV antibiotics for 3-4 weeks, she is requesting patient be transferred to [facility] in [facility] service consult placed Examined today. No new complaints Family appealed the discharge plan to Medicare. Awaiting decision by Medicare. Time spent 35 minutes Per Clerical Transcriber notes on 03/07/2025, patient is going to go to [facility] in [place] Plan discussed with: Patient Date of Service: Mar 07, 2025 Billing Provider: BERNARDO JEFF MD Common Visit Codes: [id number] INP/OBS CARE(HIGH) BERNARDO JEFF MD Mar 07, 2025 11:57
[2025-03-07 13:00] VITALS: BP 141/70; PULSE 73; RESP 16; TEMP 97.7; O2SAT 96
[2025-03-07 13:19] VITALS: BP 131/64; TEMP 36.6
== END 2025-03-07 16:30 | DRG 603 ==
LOC: ER 20:40 → OVERFLOW 02-23 01:42 → WEST WING 02-23 04:32
PROVIDERS: ADMIT Family Medicine; ATTEND Family Medicine
PROC: 02HV33Z Insertion of Infusion Device into Superior Vena Cava, Percutaneous Approach (ICD-10-PCS; principal; 2025-02-27)
PROC: B548ZZA Ultrasonography of Superior Vena Cava, Guidance (ICD-10-PCS; 2025-02-27)
DX: L03.115 Cellulitis of right lower limb (principal); N17.9 Acute kidney failure, unspecified; I16.0 Hypertensive urgency; I10 Essential (primary) hypertension; F02.80 Dementia in other diseases classified elsewhere, unspecified severity, without behavioral disturbance, psychotic disturbance, mood disturbance, and anxiety; G30.9 Alzheimer's disease, unspecified; I12.9 Hypertensive chronic kidney disease with stage 1 through stage 4 chronic kidney disease, or unspecified chronic kidney disease; E11.22 Type 2 diabetes mellitus with diabetic chronic kidney disease; N18.9 Chronic kidney disease, unspecified; Z88.5 Allergy status to narcotic agent; Z88.8 Allergy status to other drugs, medicaments and biological substances; Z80.42 Family history of malignant neoplasm of prostate; Z89.411 Acquired absence of right great toe; Z28.21 Immunization not carried out because of patient refusal
CPT/HCPCS: 36415; 36569; 73700; 73718; 76937; 80053; 80202; 82565; 83605; 83880; 84484; 85025; 85610; 85730; 86803; 87040; 87340; 96365; G0378; J2543; J3490